=== PATIENT | male | born 1990 | race African-American/Black ===

== ENCOUNTER 2017-01-06 12:01 | Emergency (ER) | payer BC ==
[~2017-01-06] VITALS: Ht 185.4 cm; Wt 74.0 kg
[~2017-01-06 12:01] MED LIST: LEVEMIR SQ; NOVOLOGSS SQ
[2017-01-06 12:03] VITALS: BP 178/98; PULSE 84; RESP 26; TEMP 98.1; O2SAT 100
--- NOTE | 2017-01-06 12:08 | PD ---
Physical Exam Time Seen by Provider: 12:06 Narrative 26-year-old male presents to the emergency Department with complaint of nausea, vomiting, diarrhea since Wednesday. Denies fevers, abdominal pain. Was evaluated at [facility] prior to arrival here and was told he was dehydrated. Is here for second opinion because he is still not feeling well. Patient seen in triage. Vital signs reviewed. Patient awaiting bed placement. Data Data Last Documented VS Vital Signs Date Time Temp Pulse Resp B/P (MAP) Pulse Ox O2 Delivery O2 Flow Rate FiO2 01/06/17 12:03 98.1 84 26 178/98 (124) 100 MDM Supervised Visit with CRISS: Herlinda Ocasio Jan 06, 2017 12:08
[2017-01-06] MEDS ORDERED: NOVOLOGP2 SQ (17:07)
[2017-01-06] MEDS ORDERED: HUMALOG SQ (17:09)
--- NOTE | 2017-01-06 17:13 | PD ---
HPI Chief Complaint: GI Complaint Time Seen by Provider: 17:11 Travel History International Travel<30 days: No Contact w/Intl Traveler<30days: No Traveled to known affect area: No History of Present Illness HPI 26-year-old type I diabetic since age of 13 presents the emergency department with 3 day history of abdominal pain, nausea, vomiting, and diarrhea. Patient denies specific complaints of fever. Pain is more central epigastric region. Pain is currently an 8 out of 10. Patient was recently seen at [facility] , and was reportedly told he was dehydrated, given 1 L IV fluids and discharged home. Parents then brought him here as his symptoms are not improved. He has no known drug allergies. PFSH Past Medical History Anxiety: No Depression: No Cancer: No Cardiovascular Problems: No Diabetes: Yes Patient Takes Glucophage: No Diminished Hearing: No Endocrine: Yes Genitourinary: No Immune Disorder: No Implanted Vascular Access Dvce: No Musculoskeletal: No Neurologic: No Psychiatric: No Reproductive: No Respiratory: No Thyroid Disease: No ?: Not Past Surgical History Surgical History: No Previous Surgery Insulin Pump: No Other Surgery: No Social History Alcohol Use: No Tobacco Use: No Substance Use: No Allergies-Medications (Allergen,Severity, Reaction): Coded Allergies: No Known Allergies (Unverified , 01/06/17) Reported Meds & Prescriptions Reported Meds & Active Scripts Active Reported Humalog Inj (Insulin Human Lispro) 1,000 Unit/10 Ml Vial 1-9 Units SQ ACHS Max dose at bedtime:( )units; sugars< 70,(0)units; sugars 150-199,(1)unit; sugars 200-249,(3)units; sugars 250-299,(5)units; sugars 300-349,(7)units; sugars more than 349,(9)units. Novolog Inj (Insulin Aspart) 1,000 Unit/10 Ml Vial 60 Unit SQ DIRECTED Sliding Scale as directed. Review of Systems Except as stated in HPI: all other systems reviewed are Neg General / Constitutional: No: Fever, Chills Eyes: No: Visual changes HENT: No: Headaches Cardiovascular: No: Chest Pain or Discomfort Respiratory: No: Shortness of Breath Gastrointestinal: Positive: Nausea, Vomiting, Diarrhea, Abdominal Pain (see history present illness), Loss of Appetite Genitourinary: No: Dysuria Musculoskeletal: No: Pain Skin: No Rash Neurologic: No: Weakness Psychiatric: No: Depression Endocrine: No: Polydipsia Hematologic/Lymphatic: No: Easy Bruising Physical Exam Narrative GENERAL: Patient appears in obvious distress. SKIN: Warm and dry. Decreased pallor. Decreased turgor. HEAD: Atraumatic. Normocephalic. EYES: Pupils equal and round. No scleral icterus. No injection or drainage. ENT: No nasal bleeding or discharge. Mucous membranes pink and somewhat dry. Pharynx is clear. Airway is patent. NECK: Trachea midline. Supple nontender. CARDIOVASCULAR: Tachycardic rate and normal rhythm. RESPIRATORY: No accessory muscle use. Clear to auscultation. Breath sounds equal bilaterally. GASTROINTESTINAL: Abdomen soft, moderate epigastric and right upper quadrant tenderness, nondistended. Hepatic and splenic margins not palpable. No CVA tenderness. MUSCULOSKELETAL: Extremities without clubbing, cyanosis, or edema. No obvious deformities. NEUROLOGICAL: Awake and alert. No obvious cranial nerve deficits. Motor grossly within normal limits. Five out of 5 muscle strength in the arms and legs. Normal speech. PSYCHIATRIC: Appropriate mood and affect; insight and judgment normal. Data Data Last Documented VS Vital Signs Date Time Temp Pulse Resp B/P (MAP) Pulse Ox O2 Delivery O2 Flow Rate FiO2 01/06/17 12:03 98.1 84 26 178/98 (124) 100 Orders Orders Complete Blood Count With Diff (01/06/17 17:15) Comprehensive Metabolic Panel (01/06/17 17:15) Lipase (01/06/17 17:15) Lactic Acid (01/06/17 17:15) Prothrombin Time / Inr (Pt) (01/06/17 17:15) Act Partial Throm Time (Ptt) (01/06/17 17:15) Urinalysis - C+S If Indicated (01/06/17 17:15) Iv Access Insert/Monitor (01/06/17 17:15) Ecg Monitoring (01/06/17 17:15) Oximetry (01/06/17 17:15) NPO (01/06/17 17:15) Morphine Inj (Morphine Inj) (01/06/17 17:15) Ondansetron Inj (Zofran Inj) (01/06/17 17:15) Pantoprazole Inj (Protonix Inj) (01/06/17 17:15) Sodium Chlor 0.9% 1000 Ml Inj (Ns 1000 M (01/06/17 17:15) Sodium Chloride 0.9% Flush (Ns Flush) (01/06/17 17:15) Electrocardiogram (01/06/17 17:15) Al-Mag Hy-Si 40-40-4 Mg/Ml Liq (Mag-Al P (01/06/17 17:15) Lidocaine 2% Viscous (Xylocaine 2% Visco (01/06/17 17:15) Ct Abd/Pel W Iv Contrast(Rout) (01/06/17 17:15) Insulin Human Regular Inj (Novolin R Inj (01/06/17 18:45) Bedside Glucose JOSTIN.CSUGAR (01/06/17 18:31) Lactic Acid Sepsis Protocol (01/06/17 18:36) Sodium Chlor 0.9% 1000 Ml Inj (Ns 1000 M (01/06/17 18:36) Sodium Chlor 0.9% 1000 Ml Inj (Ns 1000 M (01/06/17 18:36) Labs Laboratory Tests Test 01/06/17 17:40 White Blood Count 14.4 TH/MM3 Red Blood Count 4.32 MIL/MM3 Hemoglobin 12.8 GM/DL Hematocrit 38.7 % Mean Corpuscular Volume 89.6 FL Mean Corpuscular Hemoglobin 29.7 PG Mean Corpuscular Hemoglobin Concent 33.2 % Red Cell Distribution Width 14.8 % Platelet Count 235 TH/MM3 Mean Platelet Volume 10.1 FL Neutrophils (%) (Auto) 80.3 % Lymphocytes (%) (Auto) 12.3 % Monocytes (%) (Auto) 6.9 % Eosinophils (%) (Auto) 0.0 % Basophils (%) (Auto) 0.5 % Neutrophils # (Auto) 11.6 TH/MM3 Lymphocytes # (Auto) 1.8 TH/MM3 Monocytes # (Auto) 1.0 TH/MM3 Eosinophils # (Auto) 0.0 TH/MM3 Basophils # (Auto) 0.1 TH/MM3 CBC Comment DIFF FINAL Differential Comment Prothrombin Time 10.8 SEC Prothromb Time International Ratio 1.0 RATIO Activated Partial Thromboplast Time 23.3 SEC Blood Urea Nitrogen 35 MG/DL Creatinine 1.99 MG/DL Random Glucose 362 MG/DL Total Protein 8.3 GM/DL Albumin 3.6 GM/DL Calcium Level 8.8 MG/DL Alkaline Phosphatase 120 U/L Aspartate Amino Transf (AST/SGOT) 20 U/L Alanine Aminotransferase (ALT/SGPT) 20 U/L Total Bilirubin 0.9 MG/DL Sodium Level 136 MEQ/L Potassium Level 4.0 MEQ/L Chloride Level 103 MEQ/L Carbon Dioxide Level 18.5 MEQ/L Anion Gap 15 MEQ/L Estimat Glomerular Filtration Rate 50 ML/MIN Lactic Acid Level 2.4 mmol/L Lipase 78 U/L MDM Medical Decision Making Medical Screen Exam Complete: Yes Emergency Medical Condition: Yes Differential Diagnosis Nausea and vomiting. Diarrhea. Abdominal pain. Dehydration. Type 1 diabetes. Ketoacidosis. Electrolyte imbalance. Metabolic acidosis. DKA. Renal failure. Narrative Course Patient appears in moderate distress but seems medically stable. Bedside serum glucose is 346. EKG is ordered. Labs ordered including CBC, CMP, lactic acid, lipase, PT PTT and INR, and urinalysis. IV access is obtained patient is given 4 mg morphine IV as well as 4 mg Zofran IV, he is also given 40 mg pantoprazole IV, and GI cocktail with nausea is improved. CT of the abdomen and pelvis is ordered with IV contrast pending the creatinine. EKG shows normal sinus rhythm without significant ST-T changes. CBC is remarkable for leukocytosis of 14.4. Hemoglobin 12.8, hematocrit 38.7. CMP shows normal sodium 136, potassium 4.0. Chloride is 103, carbon dioxide is 18.5. Anion gap is 15. BUN is 35, and creatinine is 1.99. Random glucose is 362. Alkaline phosphatase is elevated at 120, and total protein is 8.3. Lipase is normal at 78. Lactic acid is 2.4 per 5 units of regular insulin is ordered IV. Repeat blood sugar is ordered for 1930 hrs. 2 more liters of normal saline bolus is ordered. Repeat lactic acid is ordered for 2030 hrs. Patient is discussed with Dr. Wesley, who assumes care of the patient in 1900 hrs. Final treatment and disposition is determined by her. Condition: Stable Jerry Granda Jan 06, 2017 17:13
[2017-01-06] MEDS ORDERED: PANTOPRAZOLE SODIUM 40 MG VIAL IVP ONE (17:15)
[2017-01-06] MEDS ORDERED: SODIUM CHLORIDE 0.9% FLUSH 10 ML FLUSH IV FLUSH PRN (17:15)
[2017-01-06] MEDS ORDERED: ONDANSETRON HCL 4 MG/2 ML VIAL IVP ONE (17:15)
[2017-01-06] MEDS ORDERED: SODIUM CHLOR 0.9% 1000 ML INJ 1,000 ML IV SCH (17:15)
[2017-01-06] MEDS ORDERED: MORPHINE SULFATE 4 MG/ML INJ IV PUSH ONE (17:15)
[2017-01-06] MEDS ORDERED: ALUMINUM/MAGNESIUM/SIMETH 30 ML CUP PO ONE (17:15)
[2017-01-06] MEDS ORDERED: LIDOCAINE VISCOUS 2% SOLN 15 ML UDC PO ONE (17:15)
[2017-01-06 17:53] LABS: AUTOMATED NEUTROPHIL # 11.6 TH/MM3 (1.8-7.7); BASOPHIL # 0.1 TH/MM3 (0-0.2); BASOPHIL % 0.5 % (0.0-2.0); HEMATOCRIT 38.7 % (39.0-51.0); HEMO FLAGS DIFF FINAL; LYMPH % 12.3 % (9.0-44.0); LYMPHOCYTE # 1.8 TH/MM3 (1.0-4.8); MEAN CELL VOLUME 89.6 FL (80.0-100.0); MEAN CORPUSCULAR HEMOGLOBIN 29.7 PG (27.0-34.0); MEAN CORPUSCULAR HGB CONC 33.2 % (32.0-36.0); MONO % 6.9 % (0.0-8.0); NEUT % 80.3 % (16.0-70.0); PLATELET COUNT 235 TH/MM3 (150-450); RED BLOOD COUNT 4.32 MIL/MM3 (4.50-5.90); RED CELL DISTRIBUTION WIDTH 14.8 % (11.6-17.2); WHITE BLOOD COUNT 14.4 TH/MM3 (4.0-11.0)
--- NOTE | 2017-01-06 17:54 | PD ---
Physical Exam Date Seen by Provider: Jan 06, 2017 Narrative This is a diabetic patient who presents with nausea and vomiting. Data Data Last Documented VS Vital Signs Date Time Temp Pulse Resp B/P (MAP) Pulse Ox O2 Delivery O2 Flow Rate FiO2 01/06/17 12:03 98.1 84 26 178/98 (124) 100 Orders Orders Complete Blood Count With Diff (01/06/17:) Comprehensive Metabolic Panel (01/06/17) Lipase (01/06/17:) Lactic Acid (01/06/17) Prothrombin Time / Inr (Pt) (01/06/17:) Act Partial Throm Time (Ptt) (01/06/17) Urinalysis - C+S If Indicated (01/06/17) Iv Access Insert/Monitor (01/06/17:15) Ecg Monitoring (01/06/17:) Oximetry (01/06/17) NPO (01/06/17:) Morphine Inj (Morphine Inj) (01/06/17:15) Ondansetron Inj (Zofran Inj) (01/06/17:15) Pantoprazole Inj (Protonix Inj) (01/06/17:15) Sodium Chlor 0.9% 1000 Ml Inj (Ns 1000 M (01/06/17:15) Sodium Chloride 0.9% Flush (Ns Flush) (01/06/17:15) Electrocardiogram (01/06/17:) Al-Mag Hy-Si 40-40-4 Mg/Ml Liq (Mag-Al P (01/06/17:15) Lidocaine 2% Viscous (Xylocaine 2% Visco (01/06/17:15) Ct Abd/Pel W Iv Contrast(Rout) (01/06/17:15) Labs Laboratory Tests Test 01/06/17:40 MDM Supervised Visit with CRISS: Yes Narrative Course I, Dr. Wesley, have reviewed the advance practice practitioner's documentation and am in agreement, met with the patient face to face, made the diagnosis, and the medical decision making was done by me. *My assessment and Findings: This patient was actively vomiting on arrival. He does not look like he feels very well. He does not smell of ketones and is lucid. Please see Pelon Granda PA-C's note for results of laboratory and radiographic evaluation, ED course, final diagnosis and disposition Condition: Yamilet Quiroz MD Jan 06, 2017 17:54
[2017-01-06 18:02] LABS: APTT (PATIENT) 23.3 SEC (24.3-30.1); PROTHROMBIN TIME - PATIENT 10.8 SEC (9.8-11.6)
[2017-01-06 18:10] LABS: ALT (GPT) 20 U/L (12-78); ANION GAP 15 MEQ/L (5-15); AST (GOT) 20 U/L (15-37); BICARBONATE 18.5 MEQ/L (21.0-32.0); BLOOD UREA NITROGEN 35 MG/DL (7-18); CHLORIDE 103 MEQ/L (98-107); GLOMERULAR FILTRATION RATE 50 ML/MIN (>89); SODIUM (NA) 136 MEQ/L (136-145)
[2017-01-06 18:11] LABS: ALKALINE PHOSPHATASE 120 U/L (45-117); TOTAL BILIRUBIN ADULT 0.9 MG/DL (0.2-1.0)
[2017-01-06] MEDS ORDERED: SODIUM CHLOR 0.9% 1000 ML INJ 100 ML IV ONE (18:36)
[2017-01-06] MEDS ORDERED: SODIUM CHLOR 0.9% 1000 ML INJ 1,000 ML IV ONE (18:36)
[2017-01-06] MEDS ORDERED: INSULIN HUMAN REGULAR 1,000 UNITS/10 ML VIAL SQ ONE (18:45)
[2017-01-06] MEDS ORDERED: IODIXANOL 320 MG/ML 10 ML VIAL (for Rad CT) IVCONTRAST ONE (20:14)
--- NOTE | 2017-01-06 20:22 | RADRPT ---
EXAM DATE/TIME: 01/06/2017 20:01 [facility] COMPARISON: CT ABDOMEN & PELVIS W/O CONTRAST, December 04, 2014, 19:18. INDICATIONS : Vomiting with nausea for three days. IV CONTRAST: 50 cc Visipaque (iodixanol) IV ORAL CONTRAST: No oral contrast ingested. RADIATION DOSE: 5.24 CTDIvol (mGy) MEDICAL HISTORY : Diabetes mellitus type 2. SURGICAL HISTORY : None. ENCOUNTER: Initial ACUITY: 3 days PAIN SCALE: 7/10 LOCATION: Bilateral upper quadrant TECHNIQUE: Volumetric scanning of the abdomen and pelvis was performed. Using automated exposure control and ad justment of the mA and/or kV according to patient size, radiation dose was kept as low as reasonably achievable to obtain optimal diagnostic quality images. DICOM format image data is available electro nically for review and comparison. FINDINGS: LOWER LUNGS: The visualized lower lungs are clear. LIVER: Homogeneous density without lesion. The liver is enlarged measuring 22.3 cm. There is no dilation of the biliary tree. No calcified gallstones. No ascites. SPLEEN: Normal size without lesion. PANCREAS: Within normal limits. KIDNEYS: Normal in size and shape. There is no mass, stone or hydronephrosis. ADRENAL GLANDS: Within normal limits. VASCULAR: There is no aortic aneurysm. BOWEL/MESENTERY: The stomach, small bowel, and colon demonstrate no acute abnormality. There is no free intraperitone al air or fluid. The appendix is unremarkable. No inflammatory changes. ABDOMINAL WALL: Within normal limits. RETROPERITONEUM: There is no lymphadenopathy. BLADDER: No wall thickening or mass. REPRODUCTIVE: Within normal limits. INGUINAL: There is no lymphadenopathy or hernia. MUSCULOSKELETAL: Within normal limits for patient age. No significant changes compared to 2014. CONCLUSION: 1. Diffusely enlarged liver measuring 22.3 cm. 2. Otherwise, unremarkable and stable CT scan of the abdomen and pelvis compared to 2014. Jeremiah Quigley MD on January 06, 2017 at 20:17 Board Certified Radiologist. This report was verified electronically.
[2017-01-06 21:18] VITALS: BP 148/94; PULSE 92; RESP 21; TEMP 98.4; O2SAT 99
[2017-01-06 21:53] LABS: BLOOD, URINE SMALL (NEG); GLUCOSE,URINE 1000 mg/dL (NEG); KETONE, URINE 80 mg/dL (NEG); NITRITE,URINE NEG (NEG); PH, URINE 5.5 (5.0-8.5); URINE COLOR LIGHT-YELLOW (YELLW/STRAW)
[2017-01-06 21:55] LABS: COMMENT (UR) CULT NOT INDICATED; CULTURE IF INDICATED CULT NOT INDICATED
[2017-01-06] MEDS ORDERED: ZOFR4TAB PO (22:22)
[2017-01-06 23:49] LABS: LACTIC ACID GHOST NOT REPORTABLE
--- NOTE | 2017-01-07 12:22 | EKG ---
Date Performed: 01/06/2017 Time Performed: 17:44:48 PTAGE: 26 years EKG: Sinus rhythm NORMAL ECG PREVIOUS TRACING : 06/25/2015 13.13 Compared to prior tracing no significant change DOCTOR: Danette Baxter Interpretating Date/Time 01/07/2017 12:17:50
== END 2017-01-06 23:31 | disposition home or self-care (01) ==
LOC: NEPD 12:01
DX: R11.2 Nausea with vomiting, unspecified (principal); R10.9 Unspecified abdominal pain; E86.0 Dehydration; E10.9 Type 1 diabetes mellitus without complications; Z79.4 Long term (current) use of insulin
CPT/HCPCS: 74177; 80053; 81001; 83605; 83690; 85025; 85610; 85730; 93005; 96361; 96372; 96374; 96375; 99285; C9113; J1815; J2270; J2405; J7030; Q9967

== ENCOUNTER 2017-02-16 01:49 | Emergency (ER) | payer BC ==
[~2017-02-16] VITALS: Ht 185.4 cm; Wt 68.0 kg
[~2017-02-16 01:49] MED LIST changes: +HUMALOG SQ; -LEVEMIR SQ; +NOVOLOGP2 SQ; -NOVOLOGSS SQ; +ZOFR4TAB PO
[2017-02-16 01:52] VITALS: BP 165/100; PULSE 118; RESP 18; TEMP 98.7; O2SAT 99
[2017-02-16] MEDS ORDERED: METOCLOPRAMIDE HCL 10 MG/2 ML VIAL IV PUSH ONE (02:30)
[2017-02-16] MEDS ORDERED: SODIUM CHLOR 0.9% 1000 ML INJ 1,000 ML IV ONE ×2 (02:30→05:00)
--- NOTE | 2017-02-16 02:41 | PD ---
HPI Chief Complaint: GI Complaint Time Seen by Provider: 02:19 Travel History International Travel<30 days: No Contact w/Intl Traveler<30days: No Traveled to known affect area: No History of Present Illness HPI The patient is a 26 year old male who presents to the [facility] emergency department with a history of nausea, vomiting, and diarrhea that began earlier today. He has had n/v x10 and a few episodes of diarrhea. The stool is brown in color without blood. The patient has a history of diabetes mellitus. He denies having any prior history of gastroparesis. His BS prior to arrival was 150. He denies having any known sick contacts, recent antibiotic use, or unusual food intake. On review of systems, the patient denies having any known recent fevers, cough, congestion, neck pain, chest pain, abdominal pain, urinary symptoms, or neurologic symptoms. [facility] Past Medical History Narrative Medical The patient's past medical history is significant for DM dx at 13 years of age. The patient was last seen in the emergency department related to an episode of vomiting one month ago. He denies any history of gastroparesis. He denies ever seeing a cloth opener hand. Anxiety: No Depression: No Cancer: No Cardiovascular Problems: No Diabetes: Yes Patient Takes Glucophage: No Diminished Hearing: No Endocrine: Yes Genitourinary: No Immune Disorder: No Implanted Vascular Access Dvce: No Musculoskeletal: No Neurologic: No Psychiatric: No Reproductive: No Respiratory: No Immunizations Current: Yes Thyroid Disease: No Tetanus Vaccination: < 5 Years Influenza Vaccination: Yes Past Surgical History Narrative Surgical The patient's past surgical history is reportedly none. Insulin Pump: No Other Surgery: No Social History Alcohol Use: No Tobacco Use: No Substance Use: No Allergies-Medications (Allergen,Severity, Reaction): Coded Allergies: No Known Allergies (Unverified Adverse Reaction, Unknown, 02/16/17) Reported Meds & Prescriptions Reported Meds & Active Scripts Active Zofran (Ondansetron HCl) 4 Mg Tab 4 Mg PO Q6HR PRN Reported Humalog Inj (Insulin Human Lispro) 1,000 Unit/10 Ml Vial 1-9 Units SQ ACHS Max dose at bedtime:( )units; sugars< 70,(0)units; sugars 150-199,(1)unit; sugars 200-249,(3)units; sugars 250-299,(5)units; sugars 300-349,(7)units; sugars more than 349,(9)units. Novolog Inj (Insulin Aspart) 1,000 Unit/10 Ml Vial 60 Unit SQ DIRECTED Sliding Scale as directed. Review of Systems Except as stated in HPI: all other systems reviewed are Neg General / Constitutional: No: Fever Eyes: No: Visual changes HENT: No: Headaches Cardiovascular: No: Chest Pain or Discomfort Respiratory: No: Shortness of Breath Gastrointestinal: Positive: Nausea, Vomiting, Diarrhea, Changes in Bowel Habits , No: Abdominal Pain Genitourinary: No: Dysuria Musculoskeletal: No: Pain Skin: No Rash Neurologic: No: Weakness Psychiatric: No: Depression Endocrine: No: Polydipsia Hematologic/Lymphatic: No: Easy Bruising Physical Exam Narrative General: The patient is a well-developed well-nourished male in no acute distress. Head and Neck exam: Head is normocephalic atraumatic. Eyes: EOMI, pupils are equal round and reactive to light. Nose: Midline septum with pink mucous membranes Mouth: Dentition unremarkable. Moist mucus membranes. Posterior oropharynx is not erythematous. No tonsillar hypertrophy. Uvula midline. Airway patent. Neck: No palpable lymphadenopathy. No nuchal rigidity. No thyromegaly. Cardiovascular: Sinus tachycardia in the low 100s without murmurs, gallops, or rubs. No pulse deficit to the extremities on simultaneous auscultation and palpation of his radial artery. Lungs: Clear to auscultation bilaterally. No wheezes, rhonchi, or rales. Abdomen: Soft, without tenderness to palpation in all 4 quadrants of the abdomen. No guarding, rebound, or rigidity. Normal bowel sounds are audible. No tenderness on palpation of McBurney's point. Extremities: No clubbing, cyanosis, or edema. 2+ pulses in all 4 extremities. No calf tenderness on palpation. Back: No spinous process tenderness to palpation. No costovertebral angle tenderness to palpation. Neurologic Exam: Grossly nonfocal. Skin Exam: No rash noted. Intact skin that is warm and dry. Data Data Last Documented VS Vital Signs Date Time Temp Pulse Resp B/P (MAP) Pulse Ox O2 Delivery O2 Flow Rate FiO2 02/16/17 01:52 98.7 118 18 165/100 (121) 99 Orders Orders Complete Blood Count With Diff (11/21/17 02:20) Comprehensive Metabolic Panel (02/16/17 02:20) Lipase (02/16/17 02:20) Urinalysis - C+S If Indicated (02/16/17 02:20) Blood Gas Venous Ph (02/16/17 02:20) Beta Hydroxybutyrate (Acetone) (02/16/17 02:20) Chest, Single Ap (02/16/17 02:20) Iv Access Insert/Monitor (02/16/17 02:20) Ecg Monitoring (02/16/17 02:20) Oximetry (02/16/17 02:20) Blood Glucose (02/16/17 02:20) Sodium Chlor 0.9% 1000 Ml Inj (Ns 1000 M (02/16/17 02:30) Metoclopramide Inj (Reglan Inj) (02/16/17 02:30) Sodium Chlor 0.9% 1000 Ml Inj (Ns 1000 M (02/16/17 05:00) Oral Rehydration (02/16/17 04:52) Ed Discharge Order (02/16/17 05:18) Labs Laboratory Tests Test 02/16/17 02:50 02/16/17 02:55 Venous Blood pH 7.44 White Blood Count 15.8 TH/MM3 Red Blood Count 4.59 MIL/MM3 Hemoglobin 13.8 GM/DL Hematocrit 40.4 % Mean Corpuscular Volume 88.0 FL Mean Corpuscular Hemoglobin 30.0 PG Mean Corpuscular Hemoglobin Concent 34.1 % Red Cell Distribution Width 13.6 % Platelet Count 308 TH/MM3 Mean Platelet Volume 10.0 FL Neutrophils (%) (Auto) 76.0 % Lymphocytes (%) (Auto) 15.1 % Monocytes (%) (Auto) 8.4 % Eosinophils (%) (Auto) 0.0 % Basophils (%) (Auto) 0.5 % Neutrophils # (Auto) 12.0 TH/MM3 Lymphocytes # (Auto) 2.4 TH/MM3 Monocytes # (Auto) 1.3 TH/MM3 Eosinophils # (Auto) 0.0 TH/MM3 Basophils # (Auto) 0.1 TH/MM3 CBC Comment DIFF FINAL Differential Comment Blood Urea Nitrogen 36 MG/DL Creatinine 2.37 MG/DL Random Glucose 103 MG/DL Total Protein 9.2 GM/DL Albumin 4.3 GM/DL Calcium Level 9.4 MG/DL Alkaline Phosphatase 131 U/L Aspartate Amino Transf (AST/SGOT) 19 U/L Alanine Aminotransferase (ALT/SGPT) 21 U/L Total Bilirubin 0.8 MG/DL Sodium Level 139 MEQ/L Potassium Level 3.7 MEQ/L Chloride Level 99 MEQ/L Carbon Dioxide Level 22.3 MEQ/L Anion Gap 18 MEQ/L Estimat Glomerular Filtration Rate 41 ML/MIN Lipase 109 U/L B-Hydroxybutyrate 3.96 MMOL/L MDM Medical Decision Making Medical Screen Exam Complete: Yes Emergency Medical Condition: Yes Medical Record Reviewed: Yes Interpretation(s) Last Impressions Chest X-Ray 02/16/17 0220 Signed Impressions: Service Date/Time: Thursday, February 16, 2017 02:34 - CONCLUSION: No evidence of acute cardiopulmonary disease. Lane Blue MD Differential Diagnosis Dehydration, versus DKA, versus gastroenteritis, versus gastroparesis Narrative Course During the course of the patients emergency department visit, the patients history, examination, and differential diagnosis were reviewed with the patient. The patient was placed on a nurse monitoring with oximetry and frequent blood pressure monitoring. The patient had IV access obtained and blood work sent for analysis. The patient's electronic medical record was reviewed. The patient was last seen in the emergency department in December related to vomiting. The patient at that time did undergo a CT scan of the abdomen and pelvis which showed a diffusely enlarged liver, otherwise no acute abnormality, stable CT compared to 2014. As the patient on examination has no significant abdominal pain, we will avoid doing additional imaging and exposure to radiation through CT scan of the abdomen and pelvis. I am concerned about the possibility of gastroparesis in this patient who has had 2 periods of intractable vomiting in the last 2 months. The patient was initially provided normal saline 1 L IV fluid bolus, Reglan 5 mg IV. The patients laboratory studies were reviewed and remarkable for white count 15.8, hemoglobin 13.8, platelets of 308, neutrophils 76, monocytes 8.4, CMP is remarkable for a BUN of 36, creatinine 2.37 which is similar compared to previously, alkaline phosphatase 131, total protein 9.2, lipase 109, PT 10.8, PTT 23.3, pH 7.44. The patient's blood sugar was 103 on his chemistry. The patient was given a second liter of normal saline IV fluids. The patient has not had any further episodes of vomiting or diarrhea while in the emergency department. The patient was started on sips of liquids. Radiology studies were reviewed and remarkable for a chest x-ray that shows no acute cardiopulmonary abnormality. The patient will be given the name of the cloth opener hand on-call for follow- up if he has a recurrence of vomiting. The patient will be given a prescription for nausea medication. The patient is resting comfortably and feels better, is alert and in no distress. The patients results and examination findings were discussed with the patient. The repeat examination is unremarkable and benign. The history, exam, diagnostic testing, and current condition do not suggest any significant pathology to warrant further testing, continued ED treatment, admission, or surgical evaluation at this point. The vital signs have been stable. The patient does not have uncontrollable pain, intractable vomiting, or other significant symptoms. The patient's condition is stable and appropriate for discharge. The patient will pursue further outpatient evaluation with a primary care physician or other designated or consulting physician as indicated in the discharge instructions. The patient expressed understanding and was agreeable with this plan. Diagnosis Primary Impression: Vomiting Qualified Codes: R11.2 - Nausea with vomiting, unspecified Additional Impression: Diarrhea Qualified Codes: R19.7 - Diarrhea, unspecified Referrals: Trell Narayanan MD 1 week Primary Care Physician 2 days Patient Instructions: Acute Diarrhea (ED), Acute Nausea and Vomiting (ED), General Instructions Med/Other Pt SpecificInfo: Prescription(s) given Scripts Ondansetron (Zofran) 4 Mg Tab 4 MG PO Q6HR Y for NAUSEA OR VOMITING, #10 TAB 0 Refills Prov: Tsering Ryder MD 02/16/17 Disposition: 01 DISCHARGE HOME Condition: Stable Tsering Ryder MD Feb 16, 2017 02:41
--- NOTE | 2017-02-16 02:55 | RADRPT ---
EXAM DATE/TIME: 02/16/2017 02:34 [facility] COMPARISON: CHEST SINGLE AP, June 25, 2015, 12:50. INDICATIONS : Chest pain. Vomiting. MEDICAL HISTORY : Diabetes mellitus type II. SURGICAL HISTORY : None. ENCOUNTER: Initial ACUITY: 1 day PAIN SCORE: 1/10 LOCATION: Bilateral chest FINDINGS: A single view of the chest demonstrates the lungs to be symmetrically aerated without evidence of mas s, infiltrate or effusion. The cardiomediastinal contours are unremarkable. Osseous structures are intact. CONCLUSION: No evidence of acute cardiopulmonary disease. Lane Blue MD on February 16, 2017 at 2:54 Board Certified Radiologist. This report was verified electronically.
[2017-02-16 03:22] LABS: BASOPHIL # 0.1 TH/MM3 (0-0.2); BASOPHIL % 0.5 % (0.0-2.0); HEMATOCRIT 40.4 % (39.0-51.0); HEMO FLAGS DIFF FINAL; LYMPH % 15.1 % (9.0-44.0); LYMPHOCYTE # 2.4 TH/MM3 (1.0-4.8); MEAN CORPUSCULAR HGB CONC 34.1 % (32.0-36.0); MONO % 8.4 % (0.0-8.0); PLATELET COUNT 308 TH/MM3 (150-450); RED BLOOD COUNT 4.59 MIL/MM3 (4.50-5.90); RED CELL DISTRIBUTION WIDTH 13.6 % (11.6-17.2); WHITE BLOOD COUNT 15.8 TH/MM3 (4.0-11.0)
[2017-02-16 03:37] LABS: ALT (GPT) 21 U/L (12-78); ANION GAP 18 MEQ/L (5-15); AST (GOT) 19 U/L (15-37); BICARBONATE 22.3 MEQ/L (21.0-32.0); BLOOD UREA NITROGEN 36 MG/DL (7-18); CHLORIDE 99 MEQ/L (98-107); GLOMERULAR FILTRATION RATE 41 ML/MIN (>89); POTASSIUM 3.7 MEQ/L (3.5-5.1); SODIUM (NA) 139 MEQ/L (136-145)
[2017-02-16 03:40] LABS: ALKALINE PHOSPHATASE 131 U/L (45-117); BETA-HYDROXYBUTYRATE 3.96 MMOL/L (0.00-0.39); TOTAL BILIRUBIN ADULT 0.8 MG/DL (0.2-1.0)
[2017-02-16] MEDS ORDERED: ZOFR4TAB PO (05:08)
[2017-02-16 05:45] VITALS: BP 162/88; PULSE 90; RESP 16; O2SAT 97
== END 2017-02-16 05:50 | disposition home or self-care (01) ==
LOC: NEPC 01:49
DX: R11.2 Nausea with vomiting, unspecified (principal); R19.7 Diarrhea, unspecified; E11.9 Type 2 diabetes mellitus without complications; Z79.4 Long term (current) use of insulin; Z79.899 Other long term (current) drug therapy
CPT/HCPCS: 71010; 80053; 82010; 82800; 83690; 85025; 96361; 96374; 99284; J2765; J7030

== ENCOUNTER 2017-05-10 12:17 | Inpatient (IN) | payer BC ==
[2017-05-10 12:18] VITALS: BP 125/87; PULSE 129; RESP 18; TEMP 98.1; O2SAT 100
[2017-05-10] MEDS ORDERED: ONDANSETRON HCL 4 MG/2 ML VIAL ONE (12:47)
[2017-05-10] MEDS: SODIUM CHLOR 0.9% 1000 ML INJ 1,000 ML IV SCH ×8 (12:50→22:31)
[2017-05-10] MEDS ORDERED: DEXTROSE 50% IN WATER 50 ML SYRINGE ONE (12:54)
[2017-05-10] MEDS ORDERED: DEXTROSE 50% IN WATER 50 ML VIAL(D50) IV PUSH ONE (13:00)
[2017-05-10] MEDS ORDERED: ONDANSETRON HCL 4 MG/2 ML VIAL IV PUSH ONE (13:00)
--- NOTE | 2017-05-10 13:14 | PD ---
HPI Chief Complaint: Diabetic Time Seen by Provider: 12:49 Travel History International Travel<30 days: No Contact w/Intl Traveler<30days: No Traveled to known affect area: No History of Present Illness HPI 26-year-old Type I Diabetic male presents emergency department with his brother with altered mental status and lethargy that started 9 PM last night. Mother states that patient was "not feeling good" and actually did not eat yesterday. Mother does not believe that he has had a fever or chills. Does not know why he has not been feeling good- no URI-type symptoms, fever, nausea, vomiting. The patient is a limited historian but is able to tell me that he did take his insulin this morning after he found his blood sugars around 600. States that he took his insulin (lantus 60U and novolog 30U) early this morning and again did not eat. PFSH Past Medical History Anxiety: No Depression: No Cancer: No Cardiovascular Problems: No Diabetes: Yes Patient Takes Glucophage: No Diminished Hearing: No Endocrine: Yes Genitourinary: No Immune Disorder: No Implanted Vascular Access Dvce: No Musculoskeletal: No Neurologic: No Psychiatric: No Reproductive: No Respiratory: No Immunizations Current: Yes Thyroid Disease: No Past Surgical History Insulin Pump: No Other Surgery: No Social History Alcohol Use: No Tobacco Use: No Substance Use: No Allergies-Medications (Allergen,Severity, Reaction): Coded Allergies: No Known Allergies (Unverified Adverse Reaction, Unknown, 05/10/17) Reported Meds & Prescriptions Reported Meds & Active Scripts Active Zofran (Ondansetron HCl) 4 Mg Tab 4 Mg PO Q6HR PRN Reported Lantus Inj (Insulin Glargine) 1,000 Unit/10 Ml Vial 60 Units SQ DAILY Novolog Inj (Insulin Aspart) 1,000 Unit/10 Ml Vial 60 Unit SQ DIRECTED Sliding Scale as directed. Review of Systems Except as stated in HPI: all other systems reviewed are Neg Physical Exam Narrative GENERAL: Well-developed well-nourished, lethargic SKIN: Focused skin assessment warm/dry, cool HEAD: Atraumatic. Normocephalic. EYES: Pupils equal and round. No scleral icterus. No injection or drainage. ENT: No nasal bleeding or discharge. Mucous membranes pink and dry NECK: Trachea midline. No JVD. no lymphadenopathy CARDIOVASCULAR: Regular rate and rhythm. No murmur appreciated. RESPIRATORY: No accessory muscle use. Clear to auscultation. Breath sounds equal bilaterally. GASTROINTESTINAL: Abdomen soft, non-tender, nondistended. Hepatic and splenic margins not palpable. MUSCULOSKELETAL: No obvious deformities. No clubbing. No cyanosis. No edema. NEUROLOGICAL: Awake and alert. No obvious cranial nerve deficits. Motor grossly within normal limits. Normal speech. PSYCHIATRIC: Appropriate mood and affect; insight and judgment normal. Data Data Last Documented VS Vital Signs Date Time Temp Pulse Resp B/P (MAP) Pulse Ox O2 Delivery O2 Flow Rate FiO2 05/10/17 15:07 112 18 176/97 (123) 100 Room Air 05/10/17 12:18 98.1 Orders Orders Ondansetron Inj (Zofran Inj) (05/10/17 12:47) Ondansetron Inj (Zofran Inj) (05/10/17 13:00) Dextrose 50% In Waylon (Syr) Inj (D50w (Syr (05/10/17 12:54) Electrocardiogram (05/10/17 12:50) ^ Insert Iv (05/10/17 12:50) Bedside Glucose JOSTIN.Q1H (05/10/17 12:50) Complete Blood Count With Diff (05/10/17 12:50) Comprehensive Metabolic Panel (05/10/17 12:50) Magnesium (Mg) (05/10/17 12:50) Phosphorus (Po4) (05/10/17 12:50) Beta Hydroxybutyrate (Acetone) (05/10/17 12:50) Sodium Chlor 0.9% 1000 Ml Inj (Ns 1000 M (05/10/17 12:50) Dextrose 50% In Waylon (Vial) Inj (D50w (Vi (05/10/17 13:00) Blood Gas Venous (Vbg) (05/10/17 12:50) Chest, Single Ap (05/10/17 ) Sodium Chlor 0.9% 1000 Ml Inj (Ns 1000 M (05/10/17 14:31) Dext 5%-Nacl 0.9% 1000 Ml Inj (D5w-Ns 10 (05/10/17 14:31) Insulin Human Regular Inj (Novolin R Inj (05/10/17 14:45) Insulin Regular (Iv Infusion) (Novolin R (05/10/17 14:45) Potassium Chlor 20 Meq Premix (Kcl 20 Me (05/10/17 14:45) Potassium Chlor 20 Meq Premix (Kcl 20 Me (05/10/17 14:45) Potassium Chlor 20 Meq Premix (Kcl 20 Me (05/10/17 14:45) Potassium Chlor 20 Meq Premix (Kcl 20 Me (05/10/17 14:45) Sodium Bicarbonate 8.4% Inj (Sodium Bica (05/10/17 14:45) Sodium Bicarbonate 8.4% Inj (Sodium Bica (05/10/17 14:45) Sodium Phosphate Inj (Sodium Phosphate I (05/10/17 14:45) Basic Metabolic Panel (Bmp) (05/10/17 19:31) Basic Metabolic Panel (Bmp) (05/11/17 01:31) Basic Metabolic Panel (Bmp) (05/11/17 07:31) Basic Metabolic Panel (Bmp) (05/11/17 13:31) Magnesium (Mg) (05/10/17 19:31) Magnesium (Mg) (05/11/17 01:31) Magnesium (Mg) (05/11/17 07:31) Magnesium (Mg) (05/11/17 13:31) Phosphorus (Po4) (05/10/17 19:31) Phosphorus (Po4) (05/11/17 01:31) Phosphorus (Po4) (05/11/17 07:31) Phosphorus (Po4) (05/11/17 13:31) Beta Hydroxybutyrate (Acetone) (05/11/17 01:31) Beta Hydroxybutyrate (Acetone) (05/11/17 13:31) Metoclopramide Inj (Reglan Inj) (05/10/17 15:15) Admit Order (Ed Use Only) (05/10/17 15:43) Labs Laboratory Tests Test 05/10/17 13:09 05/10/17 14:45 White Blood Count 21.2 TH/MM3 Red Blood Count 4.58 MIL/MM3 Hemoglobin 14.1 GM/DL Hematocrit 41.0 % Mean Corpuscular Volume 89.7 FL Mean Corpuscular Hemoglobin 30.8 PG Mean Corpuscular Hemoglobin Concent 34.3 % Red Cell Distribution Width 13.3 % Platelet Count 353 TH/MM3 Mean Platelet Volume 9.8 FL Neutrophils (%) (Auto) 76.1 % Lymphocytes (%) (Auto) 14.5 % Monocytes (%) (Auto) 8.8 % Eosinophils (%) (Auto) 0.0 % Basophils (%) (Auto) 0.6 % Neutrophils # (Auto) 16.2 TH/MM3 Lymphocytes # (Auto) 3.1 TH/MM3 Monocytes # (Auto) 1.9 TH/MM3 Eosinophils # (Auto) 0.0 TH/MM3 Basophils # (Auto) 0.1 TH/MM3 CBC Comment DIFF FINAL Differential Comment Blood Urea Nitrogen 54 MG/DL Creatinine 2.98 MG/DL Random Glucose 258 MG/DL Total Protein 10.2 GM/DL Albumin 4.6 GM/DL Calcium Level 10.3 MG/DL Phosphorus Level 3.9 MG/DL Magnesium Level 3.0 MG/DL Alkaline Phosphatase 145 U/L Aspartate Amino Transf (AST/SGOT) 39 U/L Alanine Aminotransferase (ALT/SGPT) 23 U/L Total Bilirubin 0.9 MG/DL Sodium Level 135 MEQ/L Potassium Level 4.8 MEQ/L Chloride Level 97 MEQ/L Carbon Dioxide Level 14.2 MEQ/L Anion Gap 24 MEQ/L Estimat Glomerular Filtration Rate 31 ML/MIN B-Hydroxybutyrate 6.97 MMOL/L Blood Gas Puncture Site LINE Blood Gas Patient Temperature 98.6 Venous Blood pH 7.34 Venous Blood Partial Pressure CO2 28 mmHg Venous Blood Partial Pressure O2 70 mmHg Venous Blood HCO3 15 mmol/L Venous Blood Oxygen Saturation 91 % Venous Blood Oxygen Content 15.4 Vol % Venous Blood Base Excess -9.7 mmol/L Blood Gas Inspired Oxygen 21 % [facility] Medical Decision Making Medical Screen Exam Complete: Yes Emergency Medical Condition: Yes Differential Diagnosis DKA, hypoglycemia, hyperglycemia, medication noncompliance Narrative Course 26-year-old Type I Diabetic male presents emergency department with his brother with altered mental status and lethargy that started 9 PM last night. Mother states that patient was "not feeling good" and actually did not eat yesterday. Mother does not believe that he has had a fever or chills. Note that the mother is in [place] and this history comes from his brother. Throughout the does not know why he has not been feeling good. The patient is a limited historian but is able to tell me that he did take his insulin this morning after he found his blood sugars around 600. States that he took his insulin ( lantus 60U and novolog 30U) early this morning and again did not eat. Vital signs-tachycardic at 129, afebrile, blood pressure 125/87. Physical exam findings consistent with a well-developed, lethargic 26-year-old male. Patient is able to answer questions appropriately although slow and with limited information. Mother states pt is rather non compliant with medications and has a history of DKA. POC BGL 60s. After 12.5 ML D50 bolus, 2 L IV fluid bolus, Zofran, patient became more alert and oriented and nauseous. Reglan administered as he was persistently nauseous. Labs revealed leukocytosis at 21.2, pH 7.34, bicarb 15, potassium 4.8, calcium 10.3, beta hydroxybutyrate 6.97 DKA protocol fully initiated. He did improve throughout the course of his stay in the ED today with treatment. Patient will be admitted for DKA to ICU with Dr. Welch. Diagnosis Primary Impression: DKA (diabetic ketoacidosis) Qualified Codes: E10.10 - Type 1 diabetes mellitus with ketoacidosis without coma Admitting Information Admitting Physician Requests: Admit Condition: Stable Irlanda Guillen May 10, 2017 13:14
[2017-05-10 13:30] LABS: AUTOMATED NEUTROPHIL # 16.2 TH/MM3 (1.8-7.7); BASOPHIL # 0.1 TH/MM3 (0-0.2); BASOPHIL % 0.6 % (0.0-2.0); HEMOGLOBIN 14.1 GM/DL (13.0-17.0); LYMPH % 14.5 % (9.0-44.0); LYMPHOCYTE # 3.1 TH/MM3 (1.0-4.8); MEAN CELL VOLUME 89.7 FL (80.0-100.0); MEAN CORPUSCULAR HEMOGLOBIN 30.8 PG (27.0-34.0); MEAN CORPUSCULAR HGB CONC 34.3 % (32.0-36.0); MEAN PLATELET VOLUME 9.8 FL (7.0-11.0); MONO % 8.8 % (0.0-8.0); MONOCYTE # 1.9 TH/MM3 (0-0.9); NEUT % 76.1 % (16.0-70.0); PLATELET COUNT 353 TH/MM3 (150-450); RED BLOOD COUNT 4.58 MIL/MM3 (4.50-5.90); RED CELL DISTRIBUTION WIDTH 13.3 % (11.6-17.2); WHITE BLOOD COUNT 21.2 TH/MM3 (4.0-11.0)
--- NOTE | 2017-05-10 13:54 | RADRPT ---
EXAM DATE/TIME: 05/10/2017 13:22 [facility] COMPARISON: CHEST SINGLE AP, February 16, 2017, 2:34. INDICATIONS : Syncope. MEDICAL HISTORY : Diabetes mellitus type II. SURGICAL HISTORY : None. ENCOUNTER: Initial ACUITY: 1 day PAIN SCORE: 0/10 LOCATION: Bilateral chest FINDINGS: A single view of the chest demonstrates the lungs to be symmetrically aerated without evidence of mas s, infiltrate or effusion. The cardiomediastinal contours are unremarkable. Osseous structures are intact. CONCLUSION: 1. No acute cardiopulmonary findings. Tom Cabrera MD on May 10, 2017 at 13:50 Board Certified Radiologist. This report was verified electronically.
[2017-05-10 14:00] LABS: ALKALINE PHOSPHATASE 145 U/L (45-117); TOTAL BILIRUBIN ADULT 0.9 MG/DL (0.2-1.0); TOTAL PROTEIN 10.2 GM/DL (6.4-8.2)
[2017-05-10 14:03] LABS: ALBUMIN 4.6 GM/DL (3.4-5.0); ALT (GPT) 23 U/L (12-78); AST (GOT) 39 U/L (15-37); BICARBONATE 14.2 MEQ/L (21.0-32.0); BLOOD UREA NITROGEN 54 MG/DL (7-18); CALCIUM 10.3 MG/DL (8.5-10.1); CHLORIDE 97 MEQ/L (98-107); CREATININE 2.98 MG/DL (0.60-1.30); GLOMERULAR FILTRATION RATE 31 ML/MIN (>89); GLUCOSE,RANDOM 258 MG/DL (74-106); PHOSPHORUS 3.9 MG/DL (2.5-4.9); SODIUM (NA) 135 MEQ/L (136-145)
[2017-05-10] MEDS ORDERED: POTASSIUM CHLOR 20 MEQ PREMIX 100 ML IV PRN ×10 (14:45→16:00)
[2017-05-10] MEDS ORDERED: INSULIN HUMAN REGULAR 1,000 UNITS/10 ML VIAL IV PUSH ONE ×2 (14:45→16:00)
[2017-05-10] MEDS ORDERED: INSULIN REGULAR (IV INFUSION) 100 UNITS in SODIUM CHLORIDE 0.9% INJ 99 ML IV PRN ×2 (14:45→16:00)
[2017-05-10] MEDS ORDERED: SODIUM BICARBONATE 8.4% SOLN 50 MEQ/50 ML VIAL IV PUSH PRN ×4 (14:45→16:00)
[2017-05-10] MEDS ORDERED: SODIUM PHOSPHATE INJ 15 MMOL in SODIUM CHLORIDE 0.9% INJ 100 ML IV PRN ×2 (14:45→16:00)
[2017-05-10 15:07] VITALS: BP 176/97; PULSE 112; RESP 18; O2SAT 100
[2017-05-10] MEDS ORDERED: LANTUS2P SQ (15:10)
[2017-05-10] MEDS ORDERED: METOCLOPRAMIDE HCL 10 MG/2 ML VIAL IV PUSH ONE (15:15)
[2017-05-10] MEDS: DEXT 5%-NACL 0.9% 1000 ML INJ 1,000 ML IV SCH ×4 (15:46→21:30)
[2017-05-10] MEDS ORDERED: MISCELLANEOUS NURSING INFORMATION XX SCH (16:00)
[2017-05-10] MEDS ORDERED: POTASSIUM CHLOR 40 MEQ PREMIX 100 ML IV PRN ×2 (16:00)
[2017-05-10] MEDS ORDERED: CHLORHEXIDINE GLUCONATE 2 % 1 PACK (2 CLOTHS) TOP PRN (16:00)
[2017-05-10 17:03] VITALS: BP 155/69; PULSE 110; RESP 18; O2SAT 100
--- NOTE | 2017-05-10 18:37 | HHI.HP ---
[facility] Service [facility] Hospitalists Primary Care Physician Non-Staff Admission Diagnosis DKA Diagnoses: Chief Complaint: Not feeling well and altered mental status and lethargy Travel History International Travel<30 Days: No Contact w/Intl Traveler <30 Da: No Traveled to Known Affected Are: No History of Present Illness Patient is a 26-year-old type I diabetic male who presents to the emergency department with his family with altered mental status and lethargy. It started at 9 PM last night. Patient mother states that was "not feeling good" He did not eat yesterday. Mother does not believe that he has had a fever chills. Patient not able to tell much. Blood sugars were around 600s morning he took his insulin Lantus 60 units and NovoLog 30 units early this morning and again did not eat Patient therefore presented to the emergency department and was found to be in diabetic ketoacidosis Review of Systems Constitutional: COMPLAINS OF: Fatigue, Chills, Change in appetite, DENIES: Diaphoretic episodes, Fever, Weight gain, Weight loss, Dizziness, Night Sweats Endocrine: DENIES: Heat/cold intolerance, Polydipsia, Polyuria, Polyphagia Eyes: DENIES: Blurred vision, Diplopia, Eye inflammation, Eye pain, Vision loss , Photosensitivity Ears, nose, mouth, throat: DENIES: Tinnitus, Hearing loss, Vertigo, Nasal discharge, Oral lesions, Throat pain, Hoarseness, Ear Pain Respiratory: DENIES: Apneas, Cough, Snoring, Wheezing, Hemoptysis, Sputum production, Shortness of breath Cardiovascular: DENIES: Chest pain, Palpitations, Syncope, Dyspnea on Exertion , PND, Lower Extremity Edema, Orthopnea Gastrointestinal: COMPLAINS OF: Nausea, DENIES: Abdominal pain, Black stools, Bloody stools, Constipation, Diarrhea, Vomiting Genitourinary: DENIES: Sexual dysfunction, Urinary frequency, Urinary incontinence Musculoskeletal: COMPLAINS OF: Muscle aches, DENIES: Joint pain, Stiffness, Joint Swelling, Back pain, Neck pain Integumentary: DENIES: Abnormal pigmentation, Nail changes, Pruritus, Rash Hematologic/lymphatic: DENIES: Bruising, Lymphadenopathy Immunologic/allergic: DENIES: Eczema, Urticaria Neurologic: COMPLAINS OF: Abnormal gait, Poor Balance, DENIES: Headache, Localized weakness, Paresthesias, Seizures, Speech Problems, Tremor Psychiatric: DENIES: Anxiety, Confusion, Mood changes, Depression, Hallucinations, Agitation, Suicidal Ideation, Homicidal Ideation, Delusions Except as stated in HPI: all other systems reviewed are Neg Past Family Social History Past Medical History Diabetes mellitus type 1 History of diabetic ketoacidosis Past Surgical History Denies Reported Medications Reported Meds & Active Scripts Active Zofran (Ondansetron HCl) 4 Mg Tab 4 Mg PO Q6HR PRN Reported Lantus Inj (Insulin Glargine) 1,000 Unit/10 Ml Vial 60 Units SQ DAILY Novolog Inj (Insulin Aspart) 1,000 Unit/10 Ml Vial 60 Unit SQ DIRECTED Sliding Scale as directed. Allergies: Coded Allergies: No Known Allergies (Unverified Adverse Reaction, Unknown, 05/10/17) Active Ordered Medications Current Medications Ondansetron HCl (Zofran Inj) 4 mg STK-MED ONCE .ROUTE ; Start 05/10/17 at 12:47 ; Stop 05/10/17 at 12:48; Status DC Ondansetron HCl (Zofran Inj) 4 mg ONCE ONCE IV PUSH Last administered on at 12:55; Start 05/10/17 at 13:00; Stop 05/10/17 at 13:01; Status DC Dextrose (D50w (Syr) Inj) 50 ml STK-MED ONCE .ROUTE ; Start 05/10/17 at 12:54; Stop 05/10/17 at 12:55; Status DC Sodium Chloride 1,000 ml @ 250 mls/hr Q4H IV Last administered on 05/10/17at 12 :50; Start 05/10/17 at 12:50 Dextrose (D50w (Vial) Inj) 25 ml ONCE ONCE IV PUSH Last administered on at 13:08; Start 05/10/17 at 13:00; Stop 05/10/17 at 13:01; Status DC Sodium Chloride 1,000 ml @ 250 mls/hr Q4H IV Last administered on 05/10/17at 16 :02; Start 05/10/17 at 14:31 Dextrose/Sodium Chloride 1,000 ml @ 200 mls/hr Q5H IV Last administered on 03/15at 16:47; Start 05/10/17 at 14:31 Insulin Human Regular (NovoLIN R INJ) 6.8 units BOLUS ONCE IV PUSH Last administered on 05/10/17at 15:24; Start 05/10/17 at 14:45; Stop 05/10/17 at 14:46 ; Status DC Insulin Human Regular 100 units/ Sodium Chloride 100 ml @ 6.81 mls/hr TITRATE PRN IV Blood Sugar Management Last administered on 05/10/17at 15:26; Start at 14:45 Potassium Chloride 100 ml @ 50 mls/hr Q2H PRN IV SEE LABEL COMMENTS; Start 03/15 at 14:45 Potassium Chloride 100 ml @ 50 mls/hr Q2H PRN IV SEE LABEL COMMENTS; Start 03/15 at 14:45 Potassium Chloride 100 ml @ 50 mls/hr Q2H PRN IV SEE LABEL COMMENTS; Start 03/15 at 14:45 Potassium Chloride 100 ml @ 50 mls/hr Q2H PRN IV SEE LABEL COMMENTS Last administered on 05/10/17at 17:20; Start 05/10/17 at 14:45 Sodium Bicarbonate (Sodium Bicarbonate 8.4% Inj) 100 meq UNSCH PRN IV PUSH SEE LABEL COMMENTS; Start 05/10/17 at 14:45 Sodium Bicarbonate (Sodium Bicarbonate 8.4% Inj) 50 meq UNSCH PRN IV PUSH SEE LABEL COMMENTS; Start 05/10/17 at 14:45 Sodium Phosphate 15 mmol/Sodium Chloride 105 ml @ 25 mls/hr UNSCH PRN IV SEE LABEL COMMENTS; Start 05/10/17 at 14:45 Metoclopramide HCl (Reglan Inj) 10 mg ONCE ONCE IV PUSH Last administered on at 15:06; Start 05/10/17 at 15:15; Stop 05/10/17 at 15:16; Status DC Sodium Chloride 1,000 ml @ 250 mls/hr Q4H IV ; Start 05/10/17 at 15:46 Dextrose/Sodium Chloride 1,000 ml @ 200 mls/hr Q5H IV ; Start 05/10/17 at 15:46 Insulin Human Regular (NovoLIN R INJ) 0.1 units/ Kg actual body weight BOLUS ONCE IV PUSH ; Start 05/10/17 at 16:00; Stop 05/10/17 at 16:02; Status DC Insulin Human Regular 100 units/ Sodium Chloride 100 ml @ 6.81 mls/hr TITRATE PRN IV Blood Glucose Control; Start 05/10/17 at 16:00 Potassium Chloride 100 ml @ 100 mls/hr Q1H PRN IV SEE LABEL COMMENTS; Start at 16:00 Potassium Chloride 100 ml @ 50 mls/hr Q2H PRN IV SEE LABEL COMMENTS; Start 03/15 at 16:00 Potassium Chloride 100 ml @ 100 mls/hr Q1H PRN IV SEE LABEL COMMENTS; Start at 16:00 Potassium Chloride 100 ml @ 100 mls/hr Q1H PRN IV SEE LABEL COMMENTS; Start at 16:00 Potassium Chloride 100 ml @ 50 mls/hr Q2H PRN IV SEE LABEL COMMENTS; Start 03/15 at 16:00 Potassium Chloride 100 ml @ 50 mls/hr Q2H PRN IV SEE LABEL COMMENTS; Start 03/15 at 16:00 Potassium Chloride 100 ml @ 50 mls/hr Q2H PRN IV SEE LABEL COMMENTS; Start 03/15 at 16:00 Potassium Chloride 100 ml @ 50 mls/hr Q2H PRN IV SEE LABEL COMMENTS; Start 03/15 at 16:00 Sodium Bicarbonate (Sodium Bicarbonate 8.4% Inj) 100 meq UNSCH PRN IV PUSH SEE LABEL COMMENTS; Start 05/10/17 at 16:00 Sodium Bicarbonate (Sodium Bicarbonate 8.4% Inj) 50 meq UNSCH PRN IV PUSH SEE LABEL COMMENTS; Start 05/10/17 at 16:00 Sodium Phosphate 15 mmol/Sodium Chloride 105 ml @ 25 mls/hr UNSCH PRN IV SEE LABEL COMMENTS; Start 05/10/17 at 16:00 Miscellaneous Information 1 [id number] ; Start 05/10/17 at 16:00 Chlorhexidine Gluconate (Chlorhexidine 2% Cloth) 3 pack Taper DAILY@04 TOP ; Start 05/11/17 at 04:00; Stop 05/07/18 at 03:59 Chlorhexidine Gluconate (Chlorhexidine 2% Cloth) 3 pack UNSCH PRN TOP HYGIENIC CARE; Start 05/10/17 at 16:00 Family History Denies any current medical issues but patient is lethargic Social History Denies any tobacco alcohol or illicits Physical Exam Vital Signs Vital Signs Date Time Temp Pulse Resp B/P (MAP) Pulse Ox O2 Delivery O2 Flow Rate FiO2 05/10/17 17:03 110 18 155/69 (97) 100 Room Air 05/10/17 15:07 112 18 176/97 (123) 100 Room Air 05/10/17 12:51 106 18 100 Room Air 05/10/17 12:18 98.1 129 18 125/87 (100) 100 Physical Exam GENERAL: This is a well-nourished, well-developed patient, who appears sick and does not appear comfortable who is quite lethargic at the time of my exam SKIN: No rashes, ecchymoses or lesions. Cool and dry. HEAD: Atraumatic. Normocephalic. No temporal or scalp tenderness. EYES: Pupils equal round and reactive. Extraocular motions intact. No scleral icterus. No injection or drainage. ENT: Nose without bleeding, purulent drainage or septal hematoma. Throat without erythema, tonsillar hypertrophy or exudate. Uvula midline. Airway patent. NECK: Trachea midline. No JVD or lymphadenopathy. Supple, nontender, no meningeal signs. CARDIOVASCULAR: Regular rate and rhythm without murmurs, gallops, or rubs. Tachycardic rate and rhythm with some S1-S2 no S3 or S4 RESPIRATORY: Clear to auscultation. Breath sounds equal bilaterally. No wheezes , rales, or rhonchi. GASTROINTESTINAL: Abdomen soft, non-tender, nondistended. No hepato-splenomegaly , or palpable masses. No guarding. MUSCULOSKELETAL: Extremities without clubbing, cyanosis, or edema. No joint tenderness, effusion, or edema noted. No calf tenderness. Negative Homans sign bilaterally. NEUROLOGICAL: Awake and alert. Cranial nerves II through XII intact. Motor and sensory grossly within normal limits. 4 out of 5 muscle strength in all muscle groups. Normal speech. Lethargic Insight and judgment is limited right now Mood and behavior somewhat inappropriate Laboratory Laboratory Tests Test 05/10/17 13:09 05/10/17 14:45 White Blood Count 21.2 Red Blood Count 4.58 Hemoglobin 14.1 Hematocrit 41.0 Mean Corpuscular Volume 89.7 Mean Corpuscular Hemoglobin 30.8 Mean Corpuscular Hemoglobin Concent 34.3 Red Cell Distribution Width 13.3 Platelet Count 353 Mean Platelet Volume 9.8 Neutrophils (%) (Auto) 76.1 Lymphocytes (%) (Auto) 14.5 Monocytes (%) (Auto) 8.8 Eosinophils (%) (Auto) 0.0 Basophils (%) (Auto) 0.6 Neutrophils # (Auto) 16.2 Lymphocytes # (Auto) 3.1 Monocytes # (Auto) 1.9 Eosinophils # (Auto) 0.0 Basophils # (Auto) 0.1 CBC Comment DIFF FINAL Differential Comment Blood Urea Nitrogen 54 Creatinine 2.98 Random Glucose 258 Total Protein 10.2 Albumin 4.6 Calcium Level 10.3 Phosphorus Level 3.9 Magnesium Level 3.0 Alkaline Phosphatase 145 Aspartate Amino Transf (AST/SGOT) 39 Alanine Aminotransferase (ALT/SGPT) 23 Total Bilirubin 0.9 Sodium Level 135 Potassium Level 4.8 Chloride Level 97 Carbon Dioxide Level 14.2 Anion Gap 24 Estimat Glomerular Filtration Rate 31 B-Hydroxybutyrate 6.97 Blood Gas Puncture Site LINE Blood Gas Patient Temperature 98.6 Venous Blood pH 7.34 Venous Blood Partial Pressure CO2 28 Venous Blood Partial Pressure O2 70 Venous Blood HCO3 15 Venous Blood Oxygen Saturation 91 Venous Blood Oxygen Content 15.4 Venous Blood Base Excess -9.7 Blood Gas Inspired Oxygen 21 Result Diagram: 05/10/17 1309 05/10/17 1309 Imaging Last Impressions Chest X-Ray 05/10/17 0000 Signed Impressions: Service Date/Time: Wednesday, May 10, 2017 13:22 - CONCLUSION: 1. No acute cardiopulmonary findings. MD Marshall Rico VTE Risk Assessment Caprini VTE Risk Assessment: Mod/High Risk (score >= 2) Caprini Risk Assessment Model Point Value = 1 Point Value = 2 Point Value = 3 Point Value = 5 Age 41-60 Minor surgery BMI > 25 kg/m2 Swollen legs Varicose veins or History of unexplained or recurrent spontaneous Oral contraceptives or hormone replacement Sepsis (< 1 month) Serious lung disease, including pneumonia (< 1 month) Abnormal pulmonary function Acute myocardial infarction Congestive heart failure (< 1 month) History of inflammatory bowel disease Medical patient at bed rest Age 61-74 Arthroscopic surgery Major open surgery (> 45 min) Laparoscopic surgery (> 45 min) Malignancy Confined to bed (> 72 hours) Immobilizing plaster cast Central venous access Age >= 75 History of VTE Family history of VTE Factor V Leiden Prothrombin [id number] Lupus anticoagulant Anticardiolipin antibodies Elevated serum homocysteine Heparin-induced thrombocytopenia Other congenital or acquired thrombophilia Stroke (< 1 month) Elective arthroplasty Hip, pelvis, or leg fracture Acute spinal cord injury (< 1 month) Prophylaxis Regimen Total Risk Factor Score Risk Level Prophylaxis Regimen 0-1 Low Early ambulation 2 Moderate Order ONE of the following: *Sequential Compression Device (SCD) *Heparin 5000 units SQ BID 3-4 Higher Order ONE of the following medications: *Heparin 5000 units SQ TID *Enoxaparin/Lovenox 40 mg SQ daily (WT < 150 kg, CrCl > 30 mL/min) *Enoxaparin/Lovenox 30 mg SQ daily (WT < 150 kg, CrCl > 10-29 mL/min) *Enoxaparin/Lovenox 30 mg SQ BID (WT < 150 kg, CrCl > 30 mL/min) AND/OR *Sequential Compression Device (SCD) 5 or more Highest Order ONE of the following medications: *Heparin 5000 units SQ TID (Preferred with Epidurals) *Enoxaparin/Lovenox 40 mg SQ daily (WT < 150 kg, CrCl > 30 mL/min) *Enoxaparin/Lovenox 30 mg SQ daily (WT < 150 kg, CrCl > 10-29 mL/min) *Enoxaparin/Lovenox 30 mg SQ BID (WT < 150 kg, CrCl > 30 mL/min) AND *Sequential Compression Device (SCD) Assessment and Plan Problem List: (1) DKA (diabetic ketoacidosis) ICD Code: E13.10 - DKA (diabetic ketoacidosis) Status: Acute (2) Leukocytosis ICD Code: D72.829 - Elevated white blood cell count, unspecified Status: Resolved (3) Acute renal failure ICD Code: N17.9 - Acute kidney failure, unspecified Status: Acute (4) DM (diabetes mellitus) ICD Code: E11.9 - DM (diabetes mellitus) Status: Acute (5) Metabolic acidosis ICD Code: E87.2 - Metabolic acidosis Status: Acute Assessment and Plan Diabetic ketoacidosis continue on insulin drip continue on fluid rehydration aggressive fluid rehydration Type I insulin with poor compliance Leukocytosis with no source. Possibly secondary to viral illness or due to the actual DKA Acute renal failure secondary to dehydration we'll rehydrate. Aggressively History of medical noncompliance Positive anion gap and elevated CO2 with elevated beta hydroxybutyrate Electrolyte imbalance will correct per protocols Code Status Full code Discussed Condition With The emergency room physician carpenter assistant, nursing and RNs and patient Physician Certification 2 Midnight Certification Type: Admission for Inpatient Services Order for Inpatient Services The services are ordered in accordance with Medicare regulations or non- Medicare payer requirements, as applicable. In the case of services not specified as inpatient-only, they are appropriately provided as inpatient services in accordance with the 2-midnight benchmark. Estimated LOS (days): 2 days is the estimated time the patient will need to remain in the hospital, assuming treatment plan goals are met and no additional complications. Post-Hospital Plan: Not yet determined Problem Qualifiers (1) DKA (diabetic ketoacidosis): Qualified Codes: E10.10 - Type 1 diabetes mellitus with ketoacidosis without coma Malik Welch DO May 10, 2017 18:37
[2017-05-10 18:49] LABS: BICARBONATE 21.2 MEQ/L (21.0-32.0); CALCIUM 8.9 MG/DL (8.5-10.1); CREATININE 2.49 MG/DL (0.60-1.30); MAGNESIUM 2.6 MG/DL (1.5-2.5)
[2017-05-10 20:00] VITALS: PULSE 105
[2017-05-10 22:00] VITALS: PULSE 95
[2017-05-10 22:41] LABS: AMYLASE 175 U/L (25-115); BICARBONATE 21.3 MEQ/L (21.0-32.0); BLOOD UREA NITROGEN 49 MG/DL (7-18); CALCIUM 8.6 MG/DL (8.5-10.1); CHLORIDE 108 MEQ/L (98-107); CREATININE 2.29 MG/DL (0.60-1.30); GLOMERULAR FILTRATION RATE 42 ML/MIN (>89); GLUCOSE,RANDOM 149 MG/DL (74-106); MAGNESIUM 2.6 MG/DL (1.5-2.5); PHOSPHORUS 4.6 MG/DL (2.5-4.9); SODIUM (NA) 144 MEQ/L (136-145)
[2017-05-11] VITALS (12 sets, daily range): BP systolic 142–177; BP diastolic 85–98; PULSE 62–92; RESP 9–14; TEMP 97.6–98.9; O2SAT 95–100
[2017-05-11] MEDS: DEXT 5%-NACL 0.9% 1000 ML INJ 1,000 ML IV SCH ×3 (00:31→10:16)
[2017-05-11] MEDS: SODIUM CHLOR 0.9% 1000 ML INJ 1,000 ML IV SCH (02:31)
[2017-05-11] MEDS: CHLORHEXIDINE GLUCONATE 2 % 1 PACK (2 CLOTHS) TOP SCH (04:00)
[2017-05-11 04:59] LABS: BICARBONATE 26.3 MEQ/L (21.0-32.0); CALCIUM 8.4 MG/DL (8.5-10.1); CREATININE 2.11 MG/DL (0.60-1.30); MAGNESIUM 2.3 MG/DL (1.5-2.5)
[2017-05-11] MEDS ORDERED: DEXTROSE 50% IN WATER 50 ML VIAL(D50) IV PUSH PRN (05:30)
[2017-05-11] MEDS ORDERED: GLUCAGON 1 MG/ML VIAL OTHER PRN (05:30)
[2017-05-11] MEDS ORDERED: DC previous DKA orders (HMC 1917) ONE (05:30)
[2017-05-11] MEDS ORDERED: INSULIN REGULAR (IV INFUSION) 100 UNITS in SODIUM CHLORIDE 0.9% INJ 99 ML IV PRN ×2 (05:45→06:30)
[2017-05-11] MEDS ORDERED: INSULIN DETEMIR 100 UNITS/ML VIAL SQ SCH ×2 (06:15→09:00)
[2017-05-11] MEDS: INSULIN NovoLIN REGULAR SUPPLEMENTAL SCALE SQ SCH ×4 (08:00→20:47)
--- NOTE | 2017-05-11 08:43 | HHI.PR ---
Subjective Remarks Patient had nausea and vomiting earlier. He is feeling better currently and will try to eat breakfast. Blood glucose better controlled. He states this all started a couple of days ago when he could not eat. Objective Vitals Vital Signs Date Time Temp Pulse Resp B/P (MAP) Pulse Ox O2 Delivery O2 Flow Rate FiO2 05/11/17 06:00 88 05/11/17 04:00 77 05/11/17 02:00 86 05/11/17 00:00 90 05/10/17 22:00 95 05/10/17 20:00 105 05/10/17 18:23 05/10/17 17:03 110 18 155/69 (97) 100 Room Air 05/10/17 15:07 112 18 176/97 (123) 100 Room Air 05/10/17 12:51 106 18 100 Room Air 05/10/17 12:18 98.1 129 18 125/87 (100) 100 I/O 05/10/17 05/10/17 05/10/17 05/11/17 05/11/17 05/11/17 07:00 15:00 23:00 07:00 15:00 23:00 Intake Total 1000 ml Output Total 800 ml Balance 1000 ml -800 ml Intake IV Total 1000 ml Output Urine Total 800 ml # Bowel Movements 0 Result Diagram: 05/10/17 1309 05/11/17 0346 Imaging Last Impressions Chest X-Ray 05/10/17 0000 Signed Impressions: Service Date/Time: Wednesday, May 10, 2017 13:22 - CONCLUSION: 1. No acute cardiopulmonary findings. Tom Cabrera MD Objective Remarks GENERAL: This is a well-nourished, well-developed patient, in no apparent distress. CARDIOVASCULAR: Normal rate and regular rhythm without murmurs, gallops, or rubs. RESPIRATORY: Good respiratory efforts. Breath sounds equal and clear to auscultation bilaterally. GASTROINTESTINAL: Abdomen soft, non-tender, non-distended. Normal active bowel sounds MUSCULOSKELETAL: Extremities without cyanosis, or edema. NEURO: Alert & Oriented x4 to person, place, time, situation. Moves all ext x4 PSYCH: Appropriate mood and affect. A/P Problem List: (1) DKA (diabetic ketoacidosis) ICD Code: E13.10 - DKA (diabetic ketoacidosis) Status: Acute (2) Leukocytosis ICD Code: D72.829 - Elevated white blood cell count, unspecified Status: Resolved (3) Acute renal failure ICD Code: N17.9 - Acute kidney failure, unspecified Status: Acute (4) DM (diabetes mellitus) ICD Code: E11.9 - DM (diabetes mellitus) Status: Acute (5) Metabolic acidosis ICD Code: E87.2 - Metabolic acidosis Status: Acute Assessment and Plan 26-year-old male with type 1 diabetes admitted with DKA, possibly secondary to viral illness/gastroenteritis. DKA/type 1 diabetes: Status post insulin drip. Nausea and vomiting this morning. Currently feeling better. - Continue subcu insulin. Continue D5 half-normal saline for now. Plan to transition to half-normal saline once he starts eating. Discussed with RN. - Patient counseled on the need to be compliant with insulin therapy. - Check hemoglobin A1c Acute renal failure: Secondary to dehydration and DKA as above. -Continue IV hydration as above. - Discuss this finding with the patient at length and the risk for worsening renal function may diabetes is persistently uncontrolled. Leukocytosis with no source. -Possibly secondary to viral illness History of medical noncompliance - Patient counseled at length. Electrolyte imbalance secondary to DKA: - Replace electrolytes per protocol. Discharge Planning Probable discharge in 1-2 days pending improvement. Problem Qualifiers (1) DKA (diabetic ketoacidosis): Qualified Codes: E10.10 - Type 1 diabetes mellitus with ketoacidosis without coma Chris Cisneros MD May 11, 2017 08:43
[2017-05-11] MEDS: ONDANSETRON HCL 4 MG/2 ML VIAL IV PUSH PRN ×2 (10:33→17:21)
[2017-05-11] MEDS ORDERED: DC Insulin drip 2 hrs post basal insulin dose ONE (10:59)
[2017-05-11] MEDS: METOCLOPRAMIDE HCL 10 MG/2 ML VIAL IV PUSH PRN ×2 (14:06→20:47)
[2017-05-11 16:25] LABS: HEMOGLOBIN A1C 9.8 % (4.3-6.0)
[2017-05-11 16:36] LABS: BICARBONATE 22.3 MEQ/L (21.0-32.0); CALCIUM 8.3 MG/DL (8.5-10.1); CREATININE 1.58 MG/DL (0.60-1.30); MAGNESIUM 2.1 MG/DL (1.5-2.5); PHOSPHORUS 1.4 MG/DL (2.5-4.9)
[2017-05-11 16:56] LABS: BILIRUBIN, URINE NEG (NEG); BLOOD, URINE TRACE (NEG); GLUCOSE,URINE NEG (NEG); KETONE, URINE 10 mg/dL (NEG); NITRITE,URINE NEG (NEG); PH, URINE 5.5 (5.0-8.5); URINE COLOR YELLOW (YELLW/STRAW); URINE LEUKOCYTE ESTERASE NEG (NEG)
[2017-05-11 20:38] LABS: BICARBONATE 21.6 MEQ/L (21.0-32.0); CALCIUM 8.7 MG/DL (8.5-10.1); CREATININE 1.64 MG/DL (0.60-1.30)
[2017-05-11 20:40] LABS: PHOSPHORUS 1.4 MG/DL (2.5-4.9)
[2017-05-11] MEDS ORDERED: PROMETHAZINE INJ 25 MG/ML VIAL IM PRN (21:45)
--- NOTE | 2017-05-11 22:13 | RADRPT ---
EXAM DATE/TIME: 05/11/2017 21:48 [facility] COMPARISON: No previous studies available for comparison. INDICATIONS : Abdominal discomfort. Nausea. MEDICAL HISTORY : Diabetes mellitus type 2. SURGICAL HISTORY : None. ENCOUNTER: Initial ACUITY: 1 day PAIN SCORE: 0/10 LOCATION: abdomen. FINDINGS: Supine view of the abdomen was performed. The abdominal bowel gas pattern is normal. Mild rotatory l evoscoliosis. No obstruction or free air. CONCLUSION: 1. No acute findings. Mild scoliosis. Samuel Vivar MD on May 11, 2017 at 22:10 Board Certified Radiologist. This report was verified electronically.
[2017-05-12] VITALS (12 sets, daily range): BP systolic 137–163; BP diastolic 81–98; PULSE 68–100; RESP 13–27; TEMP 98.4–100; O2SAT 99–100
[2017-05-12] MEDS ORDERED: POTASSIUM PHOSPHATE INJ 30 MMOL in SODIUM CHLOR 0.9% 250 ML INJ 250 ML IV ONE ×2
[2017-05-12] MEDS: ONDANSETRON HCL 4 MG/2 ML VIAL IV PUSH PRN ×2 (00:54→08:35)
[2017-05-12] MEDS: hydrALAZINE HCL 20 MG/ML VIAL IV PUSH PRN ×3 (02:03→22:17)
[2017-05-12] MEDS: METOCLOPRAMIDE HCL 10 MG/2 ML VIAL IV PUSH PRN ×2 (03:31→11:41)
[2017-05-12] MEDS: CHLORHEXIDINE GLUCONATE 2 % 1 PACK (2 CLOTHS) TOP SCH (03:36)
[2017-05-12] MEDS: DEXT 5%-NACL 0.9% 1000 ML INJ 1,000 ML IV SCH ×3 (05:28→20:18)
[2017-05-12] MEDS: POTASSIUM CHLOR 20 MEQ PREMIX 100 ML IV SCH ×2 (06:17→10:15)
[2017-05-12 07:01] LABS: HEMATOCRIT 32.4 % (39.0-51.0); HEMOGLOBIN 11.1 GM/DL (13.0-17.0); MEAN CELL VOLUME 90.6 FL (80.0-100.0); MEAN CORPUSCULAR HEMOGLOBIN 31.1 PG (27.0-34.0); MEAN CORPUSCULAR HGB CONC 34.3 % (32.0-36.0); MEAN PLATELET VOLUME 9.3 FL (7.0-11.0); PLATELET COUNT 221 TH/MM3 (150-450); RED BLOOD COUNT 3.58 MIL/MM3 (4.50-5.90); RED CELL DISTRIBUTION WIDTH 13.1 % (11.6-17.2); WHITE BLOOD COUNT 10.8 TH/MM3 (4.0-11.0)
[2017-05-12 07:17] LABS: BICARBONATE 22.5 MEQ/L (21.0-32.0); CALCIUM 8.2 MG/DL (8.5-10.1); CREATININE 1.44 MG/DL (0.60-1.30)
--- NOTE | 2017-05-12 07:47 | EKG ---
Date Performed: 05/10/2017 Time Performed: 14:49:29 PTAGE: 26 years EKG: SINUS TACHYCARDIA WITH SHORT WA INTERVAL NONSPECIFIC T-WAVE ABNORMALITY Compared to previou s tracing sinus rate is faster, nonspecific changes are new ABNORMAL RHYTHM ECG PREVIOUS TRACING : 01/06/2017 17.44 DOCTOR: Bill Malone Interpretating Date/Time 05/12/2017 07:46:50
[2017-05-12] MEDS: INSULIN NovoLIN REGULAR SUPPLEMENTAL SCALE SQ SCH ×4 (08:00→20:38)
--- NOTE | 2017-05-12 09:13 | HHI.PR ---
Subjective Remarks Patient is still experiencing nausea and vomiting. Blood glucose acceptable this morning. Objective Vitals Vital Signs Date Time Temp Pulse Resp B/P (MAP) Pulse Ox O2 Delivery O2 Flow Rate FiO2 05/12/17 06:00 68 05/12/17 04:00 98.4 79 16 142/81 (101) 100 05/12/17 04:00 79 05/12/17 02:00 85 05/12/17 00:00 98.4 74 20 137/98 (111) 100 05/12/17 00:00 74 05/11/17 22:00 92 05/11/17 20:00 98.4 70 13 177/96 (123) 95 05/11/17 20:00 70 05/11/17 18:00 75 05/11/17 16:00 62 05/11/17 16:00 98.9 62 9 168/86 (113) 97 05/11/17 14:00 84 05/11/17 12:00 97.9 74 14 142/85 (104) 100 05/11/17 12:00 74 05/11/17 10:00 91 I/O 05/11/17 05/11/17 05/11/17 05/12/17 05/12/17 05/12/17 07:00 15:00 23:00 07:00 15:00 23:00 Intake Total 25 ml 2120 ml 1346 ml Output Total 800 ml 900 ml 450 ml Balance -800 ml 25 ml 1220 ml 896 ml Intake Oral 720 ml IV Total 25 ml 1400 ml 1346 ml Output Urine Total 800 ml 900 ml 450 ml # Voids 1 # Bowel Movements 0 1 1 Result Diagram: 05/12/17 0541 05/12/17 0541 Objective Remarks GENERAL: This is a well-nourished, well-developed patient, in no apparent distress. CARDIOVASCULAR: Normal rate and regular rhythm without murmurs, gallops, or rubs. RESPIRATORY: Good respiratory efforts. Breath sounds equal and clear to auscultation bilaterally. GASTROINTESTINAL: Abdomen soft, non-tender, non-distended. Normal active bowel sounds MUSCULOSKELETAL: Extremities without cyanosis, or edema. NEURO: Alert & Oriented x4 to person, place, time, situation. Moves all ext x4 PSYCH: Appropriate mood and affect. A/P Problem List: (1) DKA (diabetic ketoacidosis) ICD Code: E13.10 - DKA (diabetic ketoacidosis) Status: Acute (2) Leukocytosis ICD Code: D72.829 - Elevated white blood cell count, unspecified Status: Resolved (3) Acute renal failure ICD Code: N17.9 - Acute kidney failure, unspecified Status: Acute (4) DM (diabetes mellitus) ICD Code: E11.9 - DM (diabetes mellitus) Status: Acute (5) Metabolic acidosis ICD Code: E87.2 - Metabolic acidosis Status: Acute Assessment and Plan 26-year-old male with type 1 diabetes admitted with DKA, possibly secondary to viral illness/gastroenteritis. DKA/type 1 diabetes: Status post insulin drip. Persistent nausea and vomiting. KUB unremarkable - Continue subcu insulin. Continue D5 half-normal saline for now. Plan to transition to half-normal saline once he starts eating. Discussed with RN. - Patient counseled on the need to be compliant with insulin therapy. - Check hemoglobin A1c Intractable nausea and vomiting: Symptoms are intermittent. - KUB unremarkable. No significant abdominal pain. - Continue with anti-emetics. PPI. - Consider abdominal CT if no improvement. Acute renal failure: Secondary to dehydration and DKA as above. Much improved. -Continue IV hydration as above. Leukocytosis with no source: Resolved -Possibly secondary to viral illness History of medical noncompliance - Patient counseled at length. Hypertension: - He admits to a history of hypertension. Has not been on medications. - Start lisinopril. PRN ordered Electrolyte imbalance secondary to DKA: - Replace electrolytes per protocol. Discharge Planning Continue care in the ICU. Replace electrolytes. At risk for falling back into DKA given persistent nausea and vomiting Problem Qualifiers (1) DKA (diabetic ketoacidosis): Qualified Codes: E10.10 - Type 1 diabetes mellitus with ketoacidosis without coma Chris Cisneros MD May 12, 2017 09:13
[2017-05-12] MEDS ORDERED: LISINOPRIL 5 MG TAB PO SCH (09:15)
[2017-05-12] MEDS ORDERED: INFLUENZA VIRUS VACCINE (QUADRIVALENT) 0.5 ML SYR IM ONE (10:00)
[2017-05-12] MEDS ORDERED: CALCIUM CARBONATE 500 MG CHEWABLE TAB CHEW PRN (11:00)
[2017-05-12] MEDS: PANTOPRAZOLE SODIUM 40 MG VIAL IV PUSH SCH ×2 (12:30→20:38)
[2017-05-13] VITALS (15 sets, daily range): BP systolic 103–181; BP diastolic 52–109; PULSE 76–104; RESP 15–25; TEMP 98–99.6; O2SAT 99–100
[2017-05-13] MEDS: CHLORHEXIDINE GLUCONATE 2 % 1 PACK (2 CLOTHS) TOP SCH (02:11)
[2017-05-13] MEDS: DEXT 5%-NACL 0.9% 1000 ML INJ 1,000 ML IV SCH (02:12)
[2017-05-13] MEDS: hydrALAZINE HCL 20 MG/ML VIAL IV PUSH PRN (04:09)
[2017-05-13 05:20] LABS: HEMATOCRIT 36.4 % (39.0-51.0); HEMOGLOBIN 12.3 GM/DL (13.0-17.0); MEAN CELL VOLUME 91.8 FL (80.0-100.0); MEAN CORPUSCULAR HGB CONC 33.8 % (32.0-36.0); MEAN PLATELET VOLUME 9.8 FL (7.0-11.0); PLATELET COUNT 187 TH/MM3 (150-450); RED BLOOD COUNT 3.96 MIL/MM3 (4.50-5.90); WHITE BLOOD COUNT 8.4 TH/MM3 (4.0-11.0)
[2017-05-13 05:51] LABS: BICARBONATE 20.5 MEQ/L (21.0-32.0); CALCIUM 8.4 MG/DL (8.5-10.1); CREATININE 1.32 MG/DL (0.60-1.30)
[2017-05-13] MEDS ORDERED: INSULIN HUMAN REGULAR 1,000 UNITS/10 ML VIAL IV PUSH ONE (06:15)
[2017-05-13] MEDS: SODIUM CHLOR 0.9% 1000 ML INJ 1,000 ML IV SCH ×2 (06:28→18:11)
[2017-05-13] MEDS: INSULIN NovoLIN REGULAR SUPPLEMENTAL SCALE SQ SCH ×4 (08:00→21:00)
--- NOTE | 2017-05-13 08:35 | HHI.PR ---
Subjective Remarks Patient reports he is feeling slightly better today. He was able to eat a little bit of dinner last night. No nausea vomiting this morning. Blood glucose very labile. Objective Vitals Vital Signs Date Time Temp Pulse Resp B/P (MAP) Pulse Ox O2 Delivery O2 Flow Rate FiO2 05/13/17 06:00 102 05/13/17 04:00 98.8 85 15 181/109 (133) 100 05/13/17 04:00 85 05/13/17 02:00 92 05/13/17 00:00 104 05/13/17 00:00 99.6 104 15 163/96 (118) 99 05/12/17 22:00 72 05/12/17 20:00 98.8 74 13 157/92 (113) 100 05/12/17 20:00 74 05/12/17 18:00 81 05/12/17 16:00 100.0 100 25 151/91 (111) 99 05/12/17 16:00 100 05/12/17 14:00 86 05/12/17 12:00 98.8 93 27 152/90 (110) 100 05/12/17 12:00 93 05/12/17 10:00 81 I/O 05/12/17 05/12/17 05/12/17 05/13/17 05/13/17 05/13/17 07:00 15:00 23:00 07:00 15:00 23:00 Intake Total 1346 ml 200 ml 1873 ml 1655 ml Output Total 450 ml 675 ml 1540 ml Balance 896 ml 200 ml 1198 ml 115 ml Intake Oral 475 ml 260 ml IV Total 1346 ml 200 ml 1398 ml 1395 ml Output Urine Total 450 ml 675 ml 1540 ml # Voids 2 # Bowel Movements 1 1 Result Diagram: 05/13/17 0415 05/13/17 0415 Objective Remarks GENERAL: This is a well-nourished, well-developed patient, in no apparent distress. CARDIOVASCULAR: Normal rate and regular rhythm without murmurs, gallops, or rubs. RESPIRATORY: Good respiratory efforts. Breath sounds equal and clear to auscultation bilaterally. GASTROINTESTINAL: Abdomen soft, non-tender, non-distended. Normal active bowel sounds MUSCULOSKELETAL: Extremities without cyanosis, or edema. NEURO: Alert & Oriented x4 to person, place, time, situation. Moves all ext x4 PSYCH: Appropriate mood and affect. A/P Problem List: (1) DKA (diabetic ketoacidosis) ICD Code: E13.10 - DKA (diabetic ketoacidosis) Status: Acute (2) Leukocytosis ICD Code: D72.829 - Elevated white blood cell count, unspecified Status: Resolved (3) Acute renal failure ICD Code: N17.9 - Acute kidney failure, unspecified Status: Acute (4) DM (diabetes mellitus) ICD Code: E11.9 - DM (diabetes mellitus) Status: Acute (5) Metabolic acidosis ICD Code: E87.2 - Metabolic acidosis Status: Acute Assessment and Plan 26-year-old male with type 1 diabetes admitted with DKA, possibly secondary to viral illness/gastroenteritis. DKA/type 1 diabetes: Status post insulin drip. He had persistent nausea and vomiting, this is much improved. KUB unremarkable -Discontinue D5 normal saline. Transition to normal saline. - Patient counseled on the need to be compliant with insulin therapy. -Hemoglobin A1c of 9.8. - Resume Levemir at a lower dose, 10 mg every 12 hours. Continue sliding scale insulin with Accu-Cheks Intractable nausea and vomiting: Likely viral gastroenteritis. Gastroparesis may also be contributing. Much improved. - KUB unremarkable. No significant abdominal pain. - Continue with anti-emetics. PPI. - Consider abdominal CT and gastric emptying study if symptoms return. -Diet as tolerated Acute renal failure: Secondary to dehydration and DKA as above. Much improved. -Continue IV hydration as above. Leukocytosis with no source: Resolved -Possibly secondary to viral illness History of medical noncompliance - Patient counseled at length. Hypertension: - He admits to a history of hypertension. Has not been on medications. -Patient was started on lisinopril, increase to 10 mg daily. PRN antihypertensives ordered Electrolyte imbalance secondary to DKA: - Replace electrolytes per protocol. Discharge Planning Stable for transfer to floor. If he continues to improve, possible discharge tomorrow. Problem Qualifiers (1) DKA (diabetic ketoacidosis): Qualified Codes: E10.10 - Type 1 diabetes mellitus with ketoacidosis without coma Chris Cisneros MD May 13, 2017 08:35
[2017-05-13] MEDS: PANTOPRAZOLE SODIUM 40 MG VIAL IV PUSH SCH ×2 (08:51→22:04)
[2017-05-13] MEDS: INSULIN DETEMIR 100 UNITS/ML VIAL SQ SCH ×2 (08:51→22:03)
[2017-05-13] MEDS: LISINOPRIL 10 MG TAB PO SCH (08:58)
[2017-05-14] MEDS: SODIUM CHLOR 0.9% 1000 ML INJ 1,000 ML IV SCH (05:25)
[2017-05-14 08:00] VITALS: BP_SYST 154; BP_SYST 155; BP_DIAS 91; BP_DIAS 98; PULSE 64; PULSE 74; RESP 16; TEMP 97; TEMP 97.1; O2SAT 100
[2017-05-14] MEDS: INSULIN NovoLIN REGULAR SUPPLEMENTAL SCALE SQ SCH ×4 (08:00→21:00)
[2017-05-14 08:16] LABS: BICARBONATE 24.2 MEQ/L (21.0-32.0); CALCIUM 8.1 MG/DL (8.5-10.1); CREATININE 1.09 MG/DL (0.60-1.30)
[2017-05-14] MEDS: PANTOPRAZOLE SODIUM 40 MG VIAL IV PUSH SCH ×2 (08:32→21:51)
[2017-05-14] MEDS: INSULIN DETEMIR 100 UNITS/ML VIAL SQ SCH (08:32)
[2017-05-14] MEDS: LISINOPRIL 10 MG TAB PO SCH (08:32)
[2017-05-14] MEDS ORDERED: POTASSIUM CHLORIDE 10 MEQ CONTROLLED RELEASE TAB PO ONE (08:45)
[2017-05-14] MEDS ORDERED: POTASSIUM CHLOR 20 MEQ PREMIX 100 ML IV ONE (09:00)
--- NOTE | 2017-05-14 13:16 | HHI.PR ---
Subjective Remarks Blood glucose dropped to the 30s earlier this morning. Levemir has been put on hold. Patient reports he is feeling better overall. He is able to eat. Potassium is low at 2.8. Objective Vitals Vital Signs Date Time Temp Pulse Resp B/P (MAP) Pulse Ox O2 Delivery O2 Flow Rate FiO2 05/14/17 08:00 97.1 64 16 155/98 (117) 100 05/13/17 23:46 Room Air 05/13/17 23:00 98.8 86 17 158/95 (116) 99 05/13/17 21:00 99.1 83 17 155/97 (116) 100 05/13/17 15:00 79 05/13/17 14:00 87 I/O 05/13/17 05/13/17 05/13/17 05/14/17 05/14/17 05/14/17 07:00 15:00 23:00 07:00 15:00 23:00 Intake Total 1655 ml 132 ml 1180 ml 1240 ml Output Total 1540 ml 1300 ml Balance 115 ml 132 ml -120 ml 1240 ml Intake Oral 260 ml 1180 ml 240 ml IV Total 1395 ml 132 ml 1000 ml Output Urine Total 1540 ml 1300 ml # Voids 2 1 # Bowel Movements 0 0 Result Diagram: 05/13/17 0415 05/14/17 0657 Objective Remarks GENERAL: This is a well-nourished, well-developed patient, in no apparent distress. CARDIOVASCULAR: Normal rate and regular rhythm without murmurs, gallops, or rubs. RESPIRATORY: Good respiratory efforts. Breath sounds equal and clear to auscultation bilaterally. GASTROINTESTINAL: Abdomen soft, non-tender, non-distended. Normal active bowel sounds MUSCULOSKELETAL: Extremities without cyanosis, or edema. NEURO: Alert & Oriented x4 to person, place, time, situation. Moves all ext x4 PSYCH: Appropriate mood and affect. A/P Problem List: (1) DKA (diabetic ketoacidosis) ICD Code: E13.10 - DKA (diabetic ketoacidosis) Status: Acute (2) Leukocytosis ICD Code: D72.829 - Elevated white blood cell count, unspecified Status: Resolved (3) Acute renal failure ICD Code: N17.9 - Acute kidney failure, unspecified Status: Acute (4) DM (diabetes mellitus) ICD Code: E11.9 - DM (diabetes mellitus) Status: Acute (5) Metabolic acidosis ICD Code: E87.2 - Metabolic acidosis Status: Acute Assessment and Plan 26-year-old male with type 1 diabetes admitted with DKA, possibly secondary to viral illness/gastroenteritis. DKA/type 1 diabetes: Status post insulin drip. He had persistent nausea and vomiting, this is resolved. KUB unremarkable -Blood glucose is widely labile. Hypoglycemic this morning in the 30s. Hold Levemir -Hemoglobin A1c of 9.8. - Continue sliding scale insulin with Accu-Cheks Intractable nausea and vomiting: Likely viral gastroenteritis. Gastroparesis may also be contributing. Resolved - KUB unremarkable. No significant abdominal pain. - Continue with anti-emetics and PPI as needed. Acute renal failure: Secondary to dehydration and DKA as above. Resolved. -Discontinue IV fluid Leukocytosis with no source: Resolved -Possibly secondary to viral illness History of medical noncompliance - Patient counseled at length. Hypokalemia: - Replace and monitor. Hypertension: - He admits to a history of hypertension. Has not been on medications. -BP still uncontrolled. Increase lisinopril to 20 mg daily. PRN antihypertensives ordered Discharge Planning Will probably be ready for discharge tomorrow. Problem Qualifiers (1) DKA (diabetic ketoacidosis): Qualified Codes: E10.10 - Type 1 diabetes mellitus with ketoacidosis without coma Chris Cisneros MD May 14, 2017 13:16
[2017-05-14 16:00] VITALS: BP 160/98; PULSE 69; RESP 16; TEMP 97.6; O2SAT 100
[2017-05-14 20:00] VITALS: BP 163/97; PULSE 81; RESP 18; TEMP 98.6; O2SAT 100
[2017-05-15] VITALS: BP 164/105; PULSE 73; RESP 18; TEMP 97.5; O2SAT 100
[2017-05-15] MEDS ORDERED: ENALAPRILAT 2.5 MG/2 ML VIAL IV PUSH ONE (00:15)
[2017-05-15 04:00] VITALS: BP_SYST 109; BP_SYST 159; BP_DIAS 68; BP_DIAS 90; PULSE 76; PULSE 92; RESP 16; RESP 20; TEMP 98; TEMP 98.8; O2SAT 97; O2SAT 98
[2017-05-15 07:58] LABS: BICARBONATE 25.5 MEQ/L (21.0-32.0); CALCIUM 7.9 MG/DL (8.5-10.1); CREATININE 1.28 MG/DL (0.60-1.30)
[2017-05-15 08:00] VITALS: BP 168/101; PULSE 71; RESP 16; TEMP 98.2; O2SAT 100
[2017-05-15] MEDS: INSULIN NovoLIN REGULAR SUPPLEMENTAL SCALE SQ SCH ×2 (08:46→13:17)
[2017-05-15] MEDS: PANTOPRAZOLE SODIUM 40 MG VIAL IV PUSH SCH (08:47)
[2017-05-15] MEDS ORDERED: LISINOPRIL 10 MG TAB PO SCH (09:00)
[2017-05-15] MEDS ORDERED: LISI-515 PO (09:54)
--- NOTE | 2017-05-15 09:55 | HHI.DS ---
Discharge Summary Admission Date May 10, 2017 at 15:46 Discharge Date: May 15, 2017 Admitting Diagnosis DKA (1) DKA (diabetic ketoacidosis) ICD Code: E13.10 - DKA (diabetic ketoacidosis) Status: Acute (2) Leukocytosis ICD Code: D72.829 - Elevated white blood cell count, unspecified Status: Resolved (3) Acute renal failure ICD Code: N17.9 - Acute kidney failure, unspecified Status: Acute (4) DM (diabetes mellitus) ICD Code: E11.9 - DM (diabetes mellitus) Status: Acute (5) Metabolic acidosis ICD Code: E87.2 - Metabolic acidosis Status: Acute Procedures None Brief History - From Admission Patient is a 26-year-old type I diabetic male who presents to the emergency department with his family with altered mental status and lethargy. It started at 9 PM last night. Patient mother states that was "not feeling good" He did not eat yesterday. Mother does not believe that he has had a fever chills. Patient not able to tell much. Blood sugars were around 600s morning he took his insulin Lantus 60 units and NovoLog 30 units early this morning and again did not eat Patient therefore presented to the emergency department and was found to be in diabetic ketoacidosis CBC/BMP: 05/13/17 0415 05/15/17 0701 Significant Findings Laboratory Tests Test 05/13/17 04:15 05/13/17 19:20 05/14/17 06:57 05/15/17 07:01 Red Blood Count 3.96 MIL/MM3 (4.50-5.90) Hemoglobin 12.3 GM/DL (13.0-17.0) Hematocrit 36.4 % (39.0-51.0) Creatinine 1.32 MG/DL (0.60-1.30) Random Glucose 406 MG/DL (74-106) 37 MG/DL (74-106) 353 MG/DL (74-106) Calcium Level 8.4 MG/DL (8.5-10.1) 8.1 MG/DL (8.5-10.1) 7.9 MG/DL (8.5-10.1) Carbon Dioxide Level 20.5 MEQ/L (21.0-32.0) Estimat Glomerular Filtration Rate 80 ML/MIN (>89) 83 ML/MIN (>89) Potassium Level 2.8 MEQ/L (3.5-5.1) Sodium Level 135 MEQ/L (136-145) Imaging Last Impressions Abdomen X-Ray 05/11/17 0000 Signed Impressions: Service Date/Time: Thursday, May 11, 2017 21:48 - CONCLUSION: 1. No acute findings. Mild scoliosis. Samuel Vivar MD Chest X-Ray 05/10/17 0000 Signed Impressions: Service Date/Time: Wednesday, May 10, 2017 13:22 - CONCLUSION: 1. No acute cardiopulmonary findings. Tom Cabrera MD PE at Discharge GENERAL: This is a well-nourished, well-developed patient, in no apparent distress. CARDIOVASCULAR: Normal rate and regular rhythm without murmurs, gallops, or rubs. RESPIRATORY: Good respiratory efforts. Breath sounds equal and clear to auscultation bilaterally. GASTROINTESTINAL: Abdomen soft, non-tender, non-distended. Normal active bowel sounds MUSCULOSKELETAL: Extremities without cyanosis, or edema. NEURO: Alert & Oriented x4 to person, place, time, situation. Moves all ext x4 PSYCH: Appropriate mood and affect. Pt update on day of discharge Patient reports is feeling back to his baseline. Blood glucose still somewhat labile. He states he can manage his diabetes at home. Tolerating his diet. Hospital Course 26-year-old male with type 1 diabetes admitted with DKA, possibly secondary to viral illness/gastroenteritis. Evaluation and treatment course detailed below: DKA/type 1 diabetes: Status post insulin drip. He had persistent nausea and vomiting, this is resolved. KUB unremarkable -Blood glucose labile and patient had episodes of hypoglycemia. Long-acting insulin was held. He is advised to cut long-acting insulin and half at home and monitor his blood glucose frequently. Patient advised to follow-up outpatient with PCP -Hemoglobin A1c of 9.8. Intractable nausea and vomiting: Likely viral gastroenteritis. Gastroparesis may also be contributing. Resolved - KUB unremarkable. No significant abdominal pain. Acute renal failure: Secondary to dehydration and DKA as above. Resolved. Leukocytosis with no source: Resolved -Possibly secondary to viral illness History of medical noncompliance - Patient counseled at length. Hypokalemia: - Replaced. Hypertension: - He admits to a history of hypertension. Has not been on medications. -BP was difficult to control. He was started on lisinopril and dose titrated to 20 mg daily he does need outpatient follow-up with PCP as he may need further titration of antihypertensives. Pt Condition on Discharge: Good Discharge Disposition: Discharge Home Discharge Time: <= 30 minutes Discharge Instructions DIET: Follow Instructions for: Diabetic Diet Activities you can perform: Regular-No Restrictions Follow up Referrals: PCP Follow-up - 1 Week New Medications: Lisinopril (Lisinopril) 20 Mg Tab 20 MG PO DAILY, #30 TAB 0 Refills Continued Medications: Insulin Aspart Inj (Novolog Inj) 1,000 Unit/10 Ml Vial 10 UNIT SQ DIRECTED for Blood Sugar Management, #10 ML 0 Refills Sliding Scale as directed. Insulin Glargine Inj (Lantus Inj) 1,000 Unit/10 Ml Vial 30 UNITS SQ DAILY for Blood Sugar Management, #1 VIAL 0 Refills Discontinued Medications: Ondansetron (Zofran) 4 Mg Tab 4 MG PO Q6HR PRN for NAUSEA OR VOMITING, #10 TAB 0 Refills Chris Cisneros MD May 15, 2017 09:55
--- NOTE | 2017-05-15 09:55 | HHI.DCPOC ---
Discharge Care Plan Diagnosis: (1) DKA (diabetic ketoacidosis) (2) Metabolic acidosis (3) Hypertension (4) Acute renal failure (5) DM (diabetes mellitus) Goals to Promote Your Health * To prevent worsening of your condition and complications * To maintain your health at the optimal level Directions to Meet Your Goals Take your medications as prescribed Follow your dietary instruction Follow activity as directed Keep your appointments as scheduled Take your immunizations and boosters as scheduled If your symptoms worsen call your PCP, if no PCP go to Urgent Care Center or Emergency Room Smoking is Dangerous to Your Health. Avoid second hand smoke Call the 24-hour hour crisis hotline for domestic abuse at Chris Cisneros MD May 15, 2017 09:55
[2017-05-15 12:00] VITALS: BP 120/83; PULSE 91; RESP 16; TEMP 96.7; O2SAT 100
== END 2017-05-15 15:12 | disposition home or self-care (01) | DRG 638 ==
LOC: NEPC 12:17 → NEDA 15:46 → HIME 18:08 → N06A 05-13 15:41
PROVIDERS: ADMIT Family Medicine; ATTEND Family Medicine
DX: E10.10 Type 1 diabetes mellitus with ketoacidosis without coma (principal); N17.9 Acute kidney failure, unspecified; Z79.4 Long term (current) use of insulin; Z91.19 Patient's noncompliance with other medical treatment and regimen; E86.0 Dehydration; A08.4 Viral intestinal infection, unspecified; E87.6 Hypokalemia; I10 Essential (primary) hypertension; Z23 Encounter for immunization
CPT/HCPCS: 71045; 74018; 80048; 80053; 81001; 82010; 82140; 82150; 82805; 82947; 82948; 83036; 83690; 83735; 84100; 85025; 85027; 87641; 90686; 93005; 96361; 96374; 96375; C9113; J0360; J1815; J1817; J2405; J2550; J2765; J3480; J7030; J7042; J7050; Q2038

== ENCOUNTER 2017-07-15 18:11 | Inpatient (IN) | payer BC ==
[~2017-07-15] VITALS: Ht 185.4 cm; Wt 62.2 kg
[~2017-07-15 18:11] MED LIST changes: -HUMALOG SQ; +LANTUS2P SQ; +LISI-515 PO; -ZOFR4TAB PO
[2017-07-15 18:26] VITALS: BP 176/100; PULSE 99; RESP 18; TEMP 98.6; O2SAT 100
[2017-07-15] MEDS ORDERED: SODIUM CHLOR 0.9% 1000 ML INJ 1,000 ML IV ONE ×3 (18:28→20:30)
[2017-07-15] MEDS ORDERED: SODIUM CHLORIDE 0.9% FLUSH 10 ML FLUSH IVF PRN (18:30)
[2017-07-15 18:32] VITALS: BP 176/100; PULSE 102; PULSE 103; RESP 18; RESP 20; TEMP 98.6; O2SAT 100
--- NOTE | 2017-07-15 18:41 | PD ---
HPI . Hypoglycemia Chief Complaint: Diabetic Time Seen by Provider: 18:38 Travel History International Travel<30 days: No Contact w/Intl Traveler<30days: No Traveled to known affect area: No History of Present Illness HPI This patient presents to us by EVAC and is accompanied here by his parents with chief complaint of hypoglycemia associated with nausea, vomiting and altered mental status. The patient is unable to give any history at all because of his mental status. History is obtained from his parents. He is a known diabetic. They state that he was fine yesterday. His symptoms seem to have started sometime between last night and this afternoon. His mother found him to be hyperglycemic this afternoon and gave him his sliding scale insulin. His sugar has basically normalized but his mental status and nausea/vomiting have continued. He was subsequently brought to us for treatment. [facility] Past Medical History Anxiety: No Depression: No Cancer: No Cardiovascular Problems: Yes (HTN ) Diabetes: Yes (TYPE 1 ) Diminished Hearing: No Endocrine: Yes Genitourinary: No Immune Disorder: No Implanted Vascular Access Dvce: No Musculoskeletal: No Neurologic: No Psychiatric: No Reproductive: No Respiratory: No Immunizations Current: Yes Thyroid Disease: No Past Surgical History Insulin Pump: No Other Surgery: No Social History Alcohol Use: No Tobacco Use: No Substance Use: No Allergies-Medications (Allergen,Severity, Reaction): Coded Allergies: No Known Allergies (Unverified Adverse Reaction, Unknown, 05/10/17) Reported Meds & Prescriptions Reported Meds & Active Scripts Active Lisinopril 20 Mg Tab 20 Mg PO DAILY Reported Lantus Inj (Insulin Glargine) 1,000 Unit/10 Ml Vial 30 Units SQ DAILY Novolog Inj (Insulin Aspart) 1,000 Unit/10 Ml Vial 10 Unit SQ DIRECTED Sliding Scale as directed. Review of Systems ROS Limitations: Altered Mental Status Physical Exam Narrative GENERAL: Patient is lying on the bed with his eyes closed. He is not answering questions. He is following simple commands though. SKIN: warm/dry. Good color and turgor. HEAD: Normocephalic. Atraumatic. EYES: Pupils equal and round. No scleral icterus. No injection or drainage. ENT: No nasal bleeding or discharge. Mucous membranes pink and moist. I do not smell ketones. NECK: Trachea midline. Full range of motion without pain.. CARDIOVASCULAR: Regular rate and rhythm. Heart sounds are normal. RESPIRATORY: No accessory muscle use. Clear to auscultation. Breath sounds equal bilaterally. GASTROINTESTINAL: Abdomen soft. Nontender. Bowel sounds present. Nondistended. MUSCULOSKELETAL: No obvious deformities. NEUROLOGICAL: Sleepy. Does follow commands. PSYCHIATRIC: Unable to assess. Data Data Last Documented VS Vital Signs Date Time Temp Pulse Resp B/P (MAP) Pulse Ox O2 Delivery O2 Flow Rate FiO2 07/15/17 18:32 98.6 102 20 176/100 (125) 100 Room Air Orders Orders Electrocardiogram (07/15/17 18:28) Complete Blood Count With Diff (07/15/17 18:28) Comprehensive Metabolic Panel (07/15/17 18:28) Magnesium (Mg) (07/15/17:) Phosphorus (Po4) (07/15/17 18:28) Beta Hydroxybutyrate (Acetone) (07/15/17 18:28) Urinalysis - C+S If Indicated (07/15/17 18:28) Blood Gas Venous (Vbg) (07/15/17 18:28) Blood Glucose (07/15/17 18:28) Blood Glucose (07/15/17 19:28) Ecg Monitoring (07/15/17 18:28) Iv Access Insert/Monitor (07/15/17 18:28) Oximetry (07/15/17 18:28) NPO (07/15/17 18:28) Sodium Chlor 0.9% 1000 Ml Inj (Ns 1000 M (07/15/17 18:28) Sodium Chlor 0.9% 1000 Ml Inj (Ns 1000 M (07/15/17 18:58) Sodium Chloride 0.9% Flush (Ns Flush) (07/15/17 18:30) [facility] Medical Decision Making Medical Screen Exam Complete: Yes Emergency Medical Condition: Yes Differential Diagnosis Differential diagnosis of hyperglycemia includes but is not limited to dietary indiscretion, medication noncompliance, infection, [place] Narrative Course This patient presents with chief complaint of hyperglycemia, nausea and vomiting and altered mental status. He was given sliding scale insulin this afternoon by his mother. His sugar is now in the 100s. He is being given a 2 L fluid bolus. Workup to rule out DKA is in process. His care will be turned over to the oncoming physician at 7 PM. Diagnosis Primary Impression: Hyperglycemia Additional Impression: Altered mental status Qualified Codes: R40.4 - Transient alteration of awareness Condition: Stable Yamilet Wesley MD Jul 15, 2017 18:41
[2017-07-15] MEDS ORDERED: PROCHLORPERAZINE INJ 10 MG/2 ML VIAL IV PUSH ONE (19:00)
[2017-07-15] MEDS ORDERED: diphenhydrAMINE HCL 50 MG/ML VIAL IV PUSH ONE (19:00)
[2017-07-15 19:27] LABS: AUTOMATED NEUTROPHIL # 11.2 TH/MM3 (1.8-7.7); BASOPHIL # 0.1 TH/MM3 (0-0.2); BASOPHIL % 0.6 % (0.0-2.0); HEMATOCRIT 40.9 % (39.0-51.0); HEMOGLOBIN 13.9 GM/DL (13.0-17.0); LYMPHOCYTE # 2.6 TH/MM3 (1.0-4.8); MEAN CELL VOLUME 87.8 FL (80.0-100.0); MEAN CORPUSCULAR HEMOGLOBIN 29.8 PG (27.0-34.0); MEAN PLATELET VOLUME 10.4 FL (7.0-11.0); MONO % 4.9 % (0.0-8.0); MONOCYTE # 0.7 TH/MM3 (0-0.9); NEUT % 76.5 % (16.0-70.0); PLATELET COUNT 308 TH/MM3 (150-450); RED BLOOD COUNT 4.66 MIL/MM3 (4.50-5.90); RED CELL DISTRIBUTION WIDTH 12.4 % (11.6-17.2); WHITE BLOOD COUNT 14.6 TH/MM3 (4.0-11.0)
[2017-07-15 19:52] LABS: ALT (GPT) 16 U/L (12-78); PHOSPHORUS 1.4 MG/DL (2.5-4.9)
[2017-07-15 19:57] LABS: BILIRUBIN, URINE NEG (NEG); BLOOD, URINE MOD (NEG); GLUCOSE,URINE 70 mg/dL (NEG); HYALINE CAST, URINE 11 /lpf (RARE); KETONE, URINE 150 mg/dL (NEG); NITRITE,URINE NEG (NEG); PH, URINE 5.5 (5.0-8.5); URINE COLOR YELLOW (YELLW/STRAW); URINE LEUKOCYTE ESTERASE NEG (NEG)
[2017-07-15 20:02] LABS: ALKALINE PHOSPHATASE 159 U/L (45-117); TOTAL BILIRUBIN ADULT 0.7 MG/DL (0.2-1.0); TOTAL PROTEIN 10.2 GM/DL (6.4-8.2)
[2017-07-15 20:05] LABS: ALBUMIN 4.6 GM/DL (3.4-5.0); AST (GOT) 21 U/L (15-37); BICARBONATE 13.9 MEQ/L (21.0-32.0); BLOOD UREA NITROGEN 42 MG/DL (7-18); CALCIUM 10.5 MG/DL (8.5-10.1); CHLORIDE 102 MEQ/L (98-107); CREATININE 2.41 MG/DL (0.60-1.30); GLOMERULAR FILTRATION RATE 40 ML/MIN (>89); GLUCOSE,RANDOM 165 MG/DL (74-106); MAGNESIUM 2.8 MG/DL (1.5-2.5); SODIUM (NA) 139 MEQ/L (136-145)
[2017-07-15 21:20] VITALS: BP 158/88; PULSE 104; RESP 17; O2SAT 100
[2017-07-15] MEDS ORDERED: INSULIN HUMAN REGULAR 1,000 UNITS/10 ML VIAL IV PUSH ONE (21:30)
[2017-07-15 22:00] VITALS: BP 158/67; PULSE 100; RESP 16; O2SAT 100
[2017-07-15 22:43] LABS: CALCIUM 8.2 MG/DL (8.5-10.1); CREATININE 2.2 MG/DL (0.60-1.30)
[2017-07-16 00:02] VITALS: BP 168/97; PULSE 102; RESP 15; O2SAT 100
[2017-07-16] MEDS ORDERED: SODIUM CHLOR 0.9% 1000 ML INJ 1,000 ML IV ONE (01:15)
[2017-07-16 05:18] VITALS: BP_SYST 161; BP_SYST 166; BP_SYST 172; BP_DIAS 100; BP_DIAS 93; BP_DIAS 99
[2017-07-16 05:46] LABS: BICARBONATE 20.1 MEQ/L (21.0-32.0); CALCIUM 8.2 MG/DL (8.5-10.1); CREATININE 2.23 MG/DL (0.60-1.30)
[2017-07-16] MEDS ORDERED: LISINOPRIL 20 MG TAB PO ONE (06:00)
--- NOTE | 2017-07-16 06:00 | PD ---
Physical Exam Date Seen by Provider: Jul 15, 2017 Time Seen by Provider: 19:30 Narrative She is signed out to me at shift change 7 PM patient is waiting for his acid state chemistry is sent and a VBG is sent his pH is 7.49 not acidotic. His chemistry does have an iron gap of 23 and he is given 3 L of fluid before I initiate anything in terms of being in diabetic ketoacidosis doses based on the fact that his pH is 7.49 it is not acidotic after 3 L his anion gap is gone I had given him to units of insulin IV patient feels much better he tolerates p.o. but creatinine remains elevated need admission Data Data Last Documented VS Vital Signs Date Time Temp Pulse Resp B/P (MAP) Pulse Ox O2 Delivery O2 Flow Rate FiO2 07/16/17 05:18 91 161/99 (119) 95 166/93 (117) 100 172/100 (124) 07/16/17 00:02 15 100 Room Air 07/15/17 18:32 98.6 Orders Orders Electrocardiogram (07/15/17 18:28) Complete Blood Count With Diff (07/15/17 18:28) Comprehensive Metabolic Panel (07/15/17 18:28) Magnesium (Mg) (07/15/17 18:28) Phosphorus (Po4) (07/15/17 18:28) Beta Hydroxybutyrate (Acetone) (07/15/17 18:28) Urinalysis - C+S If Indicated (07/15/17 18:28) Blood Gas Venous (Vbg) (07/15/17 18:28) Blood Glucose (07/15/17 18:28) Blood Glucose (07/15/17 19:) Ecg Monitoring (07/15/17 18:28) Iv Access Insert/Monitor (07/15/17 18:28) Oximetry (07/15/17 18:28) NPO (07/15/17 18:28) Sodium Chlor 0.9% 1000 Ml Inj (Ns 1000 M (07/15/17 18:28) Sodium Chlor 0.9% 1000 Ml Inj (Ns 1000 M (07/15/17 18:58) Sodium Chloride 0.9% Flush (Ns Flush) (07/15/17 18:30) Prochlorperazine Inj (Compazine Inj) (07/15/17 19:00) Diphenhydramine Inj (Benadryl Inj) (07/15/17 19:00) Sodium Chlor 0.9% 1000 Ml Inj (Ns 1000 M (07/15/17 20:30) Basic Metabolic Panel (Bmp) (07/15/17 21:16) Insulin Human Regular Inj (Novolin R Inj (07/15/17 21:30) Sodium Chlor 0.9% 1000 Ml Inj (Ns 1000 M (07/16/17 01:15) Basic Metabolic Panel (Bmp) (07/16/17 04:55) Lisinopril (Prinivil) (07/16/17 06:00) Admit Order (Ed Use Only) (07/16/17 07:16) Labs Laboratory Tests Test 07/15/17 18:57 07/15/17 19:30 07/15/17 19:34 07/15/17 22:00 White Blood Count 14.6 TH/MM3 Red Blood Count 4.66 MIL/MM3 Hemoglobin 13.9 GM/DL Hematocrit 40.9 % Mean Corpuscular Volume 87.8 FL Mean Corpuscular Hemoglobin 29.8 PG Mean Corpuscular Hemoglobin Concent 34.0 % Red Cell Distribution Width 12.4 % Platelet Count 308 TH/MM3 Mean Platelet Volume 10.4 FL Neutrophils (%) (Auto) 76.5 % Lymphocytes (%) (Auto) 18.0 % Monocytes (%) (Auto) 4.9 % Eosinophils (%) (Auto) 0.0 % Basophils (%) (Auto) 0.6 % Neutrophils # (Auto) 11.2 TH/MM3 Lymphocytes # (Auto) 2.6 TH/MM3 Monocytes # (Auto) 0.7 TH/MM3 Eosinophils # (Auto) 0.0 TH/MM3 Basophils # (Auto) 0.1 TH/MM3 CBC Comment DIFF FINAL Differential Comment Blood Urea Nitrogen 42 MG/DL 39 MG/DL Creatinine 2.41 MG/DL 2.20 MG/DL Random Glucose 165 MG/DL 179 MG/DL Total Protein 10.2 GM/DL Albumin 4.6 GM/DL Calcium Level 10.5 MG/DL 8.2 MG/DL Phosphorus Level 1.4 MG/DL Magnesium Level 2.8 MG/DL Alkaline Phosphatase 159 U/L Aspartate Amino Transf (AST/SGOT) 21 U/L Alanine Aminotransferase (ALT/SGPT) 16 U/L Total Bilirubin 0.7 MG/DL Sodium Level 139 MEQ/L 145 MEQ/L Potassium Level 3.9 MEQ/L 3.5 MEQ/L Chloride Level 102 MEQ/L 111 MEQ/L Carbon Dioxide Level 13.9 MEQ/L 18.0 MEQ/L Anion Gap 23 MEQ/L 16 MEQ/L Estimat Glomerular Filtration Rate 40 ML/MIN 44 ML/MIN B-Hydroxybutyrate 7.54 MMOL/L Blood Gas Puncture Site Blood Gas Patient Temperature 98.6 Venous Blood pH 7.49 Venous Blood Partial Pressure CO2 18 mmHg Venous Blood Partial Pressure O2 39 mmHg Venous Blood HCO3 14 mmol/L Venous Blood Oxygen Saturation 78 % Venous Blood Oxygen Content 15.7 Vol % Venous Blood Base Excess -8.9 mmol/L Oxygen Delivery Device ROOM AIR Blood Gas Inspired Oxygen 21 % Urine Color YELLOW Urine Turbidity CLEAR Urine pH 5.5 Urine Specific [place] 1.017 Urine Protein 300 mg/dL Urine Glucose (UA) 70 mg/dL Urine Ketones 150 mg/dL Urine Occult Blood MOD Urine Nitrite NEG Urine Bilirubin NEG Urine Urobilinogen 2.0 MG/DL Urine Leukocyte Esterase NEG Urine RBC 12 /hpf Urine WBC 4 /hpf Urine Hyaline Casts 11 /lpf Urine Granular Casts 61 /lpf Microscopic Urinalysis Comment CULT NOT INDICATED Test 07/16/17 04:58 Blood Urea Nitrogen 36 MG/DL Creatinine 2.23 MG/DL Random Glucose 227 MG/DL Calcium Level 8.2 MG/DL Sodium Level 146 MEQ/L Potassium Level 4.2 MEQ/L Chloride Level 114 MEQ/L Carbon Dioxide Level 20.1 MEQ/L Anion Gap 12 MEQ/L Estimat Glomerular Filtration Rate 44 ML/MIN [facility] Supervised Visit with CRISS: No Differential Diagnosis DKA vs non ketotic severe dehydration due to vomit , acute renal failure due to severe pre renal dehydration from vomit diarrhea , other Narrative Course pt given 4 liters and anion gap corrected without Insulin Drip ABG shows pH 7.49 not acidotic and all labs corrected with fluid except creatinine remained high 2.23. after 4 liters and 2 redraws for chem still creatinine up much above his normal baseline --> will admit for further renal eval Diagnosis Primary Impression: Hyperglycemia Additional Impressions: Gastroenteritis Acute renal failure Qualified Codes: N17.9 - Acute kidney failure, unspecified Admitting Information Admitting Physician Requests: Admit Patient Instructions: General Instructions Departure Forms: Tests/Procedures Scripts Amlodipine (Norvasc) 10 Mg Tab 10 MG PO DAILY for HIGH BLOOD PRESSURE, #30 TAB 1 Refill Prov: Tsering Ness MD 07/18/17 Insulin Glargine Inj (Lantus Inj) 1,000 Unit/10 Ml Vial 30 UNITS SQ DAILY for Blood Sugar Management for 30 Days, VIAL 0 Refills Prov: Tsering Ness MD 07/18/17 Lisinopril (Lisinopril) 20 Mg Tab 20 MG PO DAILY for HIGH BLOOD PRESSURE, #30 TAB 1 Refill Prov: Tsering Ness MD 07/18/17 Condition: Stable Constantino Phillip MD Jul 16, 2017 06:00
[2017-07-16] MEDS ORDERED: hydrALAZINE HCL 10 MG TAB PO PRN (08:15)
[2017-07-16] MEDS ORDERED: DEXTROSE 50% IN WATER 50 ML VIAL(D50) IV PUSH PRN (08:15)
[2017-07-16] MEDS ORDERED: ONDANSETRON HCL 4 MG/2 ML VIAL IVP PRN (08:15)
[2017-07-16] MEDS ORDERED: LACTULOSE SYRUP 20 GM/30 ML CUP PO PRN (08:15)
[2017-07-16] MEDS ORDERED: GLUCAGON 1 MG/ML VIAL OTHER PRN (08:15)
[2017-07-16] MEDS ORDERED: SODIUM CHLORIDE 0.9% FLUSH 10 ML FLUSH IV FLUSH PRN (08:15)
[2017-07-16] MEDS ORDERED: SENNOSIDES 8.6 MG TAB PO PRN (08:15)
[2017-07-16] MEDS ORDERED: MAGNESIUM HYDROXIDE SUSP 30 ML CUP PO PRN (08:15)
[2017-07-16] MEDS ORDERED: NALOXONE HCL 0.4 MG/ML AMP IV PUSH PRN (08:15)
[2017-07-16] MEDS ORDERED: BISACODYL 10 MG SUPP RECTAL PRN (08:15)
[2017-07-16] MEDS: SODIUM CHLOR 0.9% 1000 ML INJ 1,000 ML IV SCH ×2 (08:28→18:28)
[2017-07-16 09:00] VITALS: BP 130/77; PULSE 97; RESP 18; O2SAT 98
[2017-07-16] MEDS ORDERED: INSULIN DETEMIR 100 UNITS/ML VIAL SQ SCH (09:00)
[2017-07-16] MEDS: SODIUM CHLORIDE 0.9% FLUSH 10 ML FLUSH IV FLUSH SCH ×2 (09:05→21:00)
[2017-07-16] MEDS: DOCUSATE SODIUM 50 MG/SENNA 8.6 MG TAB PO SCH ×2 (09:06→21:00)
[2017-07-16] MEDS ORDERED: HUMALOG SQ (10:58)
[2017-07-16] MEDS ORDERED: LANTUS2P SQ (10:58)
--- NOTE | 2017-07-16 11:08 | HHI.HP ---
HPI Service [facility] Primary Care Physician Non-Staff Admission Diagnosis acute renal failure Diagnoses: Travel History International Travel<30 Days: No Contact w/Intl Traveler <30 Da: No Traveled to Known Affected Are: No History of Present Illness Patient is a 26-year-old -[place] male past medical history of diabetes and history of ketoacidosis presented to the emergency room with nausea vomiting not feeling well. Upon admission to the ED he was found to have a an anion gap of 23 and blood sugars of 165. Pt states he had multiple episodes of emesis which prompted him to come to the emergency room. He denied any abdominal pain, burning with urination or increased urinary frequency, he denies any upper respiratory symptoms such as cough, runny nose or shortness of breath. Patient states he has been compliant with his medications. He takes long-acting but does not tell me how much and he also states he takes insulin with his meals plus a sliding scale. RN at the time of the interview tells me that mom called and patient is supposed to be on Lantus 60 units daily and 12 units of Humalog with meals then he covers himself with a sliding scale. I did review patient's previous admission and he was instructed to continue lantus 30 units daily and 10 units of NovoLog with meals. Patient states he has been compliant with all his medications. Denies any sick contacts. He states he has a history of loose stools which is normal for him. At last admission there were concerns of patient's labile blood sugars as well. When asked patient he counts carbs he says yes. Patient states that he does not remember if he went over the dose of his medications with the nurse upon arrival to the ER. Review of Systems Except as stated in HPI: all other systems reviewed are Neg Past Family Social History Past Medical History Diabetes/DKA Past Surgical History None Reported Medications Reported Meds & Active Scripts Active Lisinopril 20 Mg Tab 20 Mg PO DAILY Reported Humalog Inj (Insulin Human Lispro) 1,000 Unit/10 Ml Vial 12 Units SQ ACHS Max dose at bedtime:( )units; sugars < 70,(0)units; sugars 150-199,(2)units; sugars 200-249,(4)units; sugars 250-299,(7)units; sugars 300-349,(10)units; sugars more than 349,(12)units. Lantus Inj (Insulin Glargine) 1,000 Unit/10 Ml Vial 60 Units SQ DAILY Allergies: Coded Allergies: No Known Allergies (Unverified Adverse Reaction, Unknown, 05/10/17) Family History Patient denies any medical problems with parents Social History Denies smoking history, denies drinking alcohol or using illegal drug use. Physical Exam Vital Signs Vital Signs Date Time Temp Pulse Resp B/P (MAP) Pulse Ox O2 Delivery O2 Flow Rate FiO2 07/16/17 09:00 97 18 130/77 (94) 98 Room Air 07/16/17 05:18 91 161/99 (119) 95 166/93 (117) 100 172/100 (124) 07/16/17 00:02 102 15 168/97 (120) 100 Room Air 07/15/17 22:00 100 16 158/67 (97) 100 Room Air 07/15/17 21:20 104 17 158/88 (111) 100 Room Air 07/15/17 18:32 98.6 102 20 176/100 (125) 100 Room Air 07/15/17 18:32 99 18 100 Room Air 07/15/17 18:32 103 18 100 Room Air 07/15/17 18:26 98.6 99 18 176/100 (125) 100 Physical Exam GENERAL: AA male, laying in bed, appears comfortable SKIN: No rashes, ecchymoses or lesions. Cool and dry. HEAD: Atraumatic. Normocephalic. EYES: Extraocular motions intact. ENT: Nose without drainage. Airway patent. NECK: Trachea midline. CARDIOVASCULAR: Regular rate and rhythm without murmurs RESPIRATORY: Clear to auscultation. Breath sounds equal bilaterally. No wheezes GASTROINTESTINAL: Abdomen soft, non-tender, nondistended. No guarding. MUSCULOSKELETAL: Extremities without edema. NEUROLOGICAL: Awake and alert. Normal speech. Laboratory Laboratory Tests Test 07/15/17 18:57 07/15/17 19:30 07/15/17 19:34 07/15/17 22:00 White Blood Count 14.6 Red Blood Count 4.66 Hemoglobin 13.9 Hematocrit 40.9 Mean Corpuscular Volume 87.8 Mean Corpuscular Hemoglobin 29.8 Mean Corpuscular Hemoglobin Concent 34.0 Red Cell Distribution Width 12.4 Platelet Count 308 Mean Platelet Volume 10.4 Neutrophils (%) (Auto) 76.5 Lymphocytes (%) (Auto) 18.0 Monocytes (%) (Auto) 4.9 Eosinophils (%) (Auto) 0.0 Basophils (%) (Auto) 0.6 Neutrophils # (Auto) 11.2 Lymphocytes # (Auto) 2.6 Monocytes # (Auto) 0.7 Eosinophils # (Auto) 0.0 Basophils # (Auto) 0.1 CBC Comment DIFF FINAL Differential Comment Blood Urea Nitrogen 42 39 Creatinine 2.41 2.20 Random Glucose 165 179 Total Protein 10.2 Albumin 4.6 Calcium Level 10.5 8.2 Phosphorus Level 1.4 Magnesium Level 2.8 Alkaline Phosphatase 159 Aspartate Amino Transf (AST/SGOT) 21 Alanine Aminotransferase (ALT/SGPT) 16 Total Bilirubin 0.7 Sodium Level 139 145 Potassium Level 3.9 3.5 Chloride Level 102 111 Carbon Dioxide Level 13.9 18.0 Anion Gap 23 16 Estimat Glomerular Filtration Rate 40 44 B-Hydroxybutyrate 7.54 Blood Gas Puncture Site Blood Gas Patient Temperature 98.6 Venous Blood pH 7.49 Venous Blood Partial Pressure CO2 18 Venous Blood Partial Pressure O2 39 Venous Blood HCO3 14 Venous Blood Oxygen Saturation 78 Venous Blood Oxygen Content 15.7 Venous Blood Base Excess -8.9 Oxygen Delivery Device ROOM AIR Blood Gas Inspired Oxygen 21 Urine Color YELLOW Urine Turbidity CLEAR Urine pH 5.5 Urine Specific [place] 1.017 Urine Protein 300 Urine Glucose (UA) 70 Urine Ketones 150 Urine Occult Blood MOD Urine Nitrite NEG Urine Bilirubin NEG Urine Urobilinogen 2.0 Urine Leukocyte Esterase NEG Urine RBC 12 Urine WBC 4 Urine Hyaline Casts 11 Urine Granular Casts 61 Microscopic Urinalysis Comment CULT NOT INDICATED Test 07/16/17 04:58 Blood Urea Nitrogen 36 Creatinine 2.23 Random Glucose 227 Calcium Level 8.2 Sodium Level 146 Potassium Level 4.2 Chloride Level 114 Carbon Dioxide Level 20.1 Anion Gap 12 Estimat Glomerular Filtration Rate 44 Result Diagram: 07/15/17 1857 07/16/17 0458 Caprini VTE Risk Assessment Caprini VTE Risk Assessment: No/Low Risk (score <= 1) Caprini Risk Assessment Model Point Value = 1 Point Value = 2 Point Value = 3 Point Value = 5 Age 41-60 Minor surgery BMI > 25 kg/m2 Swollen legs Varicose veins or History of unexplained or recurrent spontaneous Oral contraceptives or hormone replacement Sepsis (< 1 month) Serious lung disease, including pneumonia (< 1 month) Abnormal pulmonary function Acute myocardial infarction Congestive heart failure (< 1 month) History of inflammatory bowel disease Medical patient at bed rest Age 61-74 Arthroscopic surgery Major open surgery (> 45 min) Laparoscopic surgery (> 45 min) Malignancy Confined to bed (> 72 hours) Immobilizing plaster cast Central venous access Age >= 75 History of VTE Family history of VTE Factor V Leiden Prothrombin [id number] Lupus anticoagulant Anticardiolipin antibodies Elevated serum homocysteine Heparin-induced thrombocytopenia Other congenital or acquired thrombophilia Stroke (< 1 month) Elective arthroplasty Hip, pelvis, or leg fracture Acute spinal cord injury (< 1 month) Prophylaxis Regimen Total Risk Factor Score Risk Level Prophylaxis Regimen 0-1 Low Early ambulation 2 Moderate Order ONE of the following: *Sequential Compression Device (SCD) *Heparin 5000 units SQ BID 3-4 Higher Order ONE of the following medications: *Heparin 5000 units SQ TID *Enoxaparin/Lovenox 40 mg SQ daily (WT < 150 kg, CrCl > 30 mL/min) *Enoxaparin/Lovenox 30 mg SQ daily (WT < 150 kg, CrCl > 10-29 mL/min) *Enoxaparin/Lovenox 30 mg SQ BID (WT < 150 kg, CrCl > 30 mL/min) AND/OR *Sequential Compression Device (SCD) 5 or more Highest Order ONE of the following medications: *Heparin 5000 units SQ TID (Preferred with Epidurals) *Enoxaparin/Lovenox 40 mg SQ daily (WT < 150 kg, CrCl > 30 mL/min) *Enoxaparin/Lovenox 30 mg SQ daily (WT < 150 kg, CrCl > 10-29 mL/min) *Enoxaparin/Lovenox 30 mg SQ BID (WT < 150 kg, CrCl > 30 mL/min) AND *Sequential Compression Device (SCD) Assessment and Plan Assessment and Plan Uncontrolled diabetes: Patient most likely went into DKA when he first came in as his anion gap was 23 secondary to severe dehydration from nausea vomiting. Possibly from gastroenteritis which seems to have now resolved. In the ED, patient received normal saline boluses with insulin IV. Anion gap closed and went from 23 to12. When I evaluated the patient, patient's blood sugars were 226 on Accu-Chek. Patient told me he was feeling a lot better and no longer had nausea or vomiting. RN notified me that patient's home dose should be Lantus 60 units daily with 12 units of Humalog with meals per mother who called her. From previous records, patient has very labile blood sugars. This morning patient got a 30 unit dose of Levemir and we will continue to adjust/ increase Levemir daily. I have put him on a diabetic diet, 1800 ADA. He is also on a medium insulin sliding scale. Monitor blood sugars closely. I will consult dietitian to please review with him carb counting as I suspect this plays a big role in patient's labile blood sugars. 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 We will continue IV hydration with normal saline at 125 mL's per hour. As mentioned above patient did receive boluses in the ED. I have encouraged him to hydrate himself by mouth. Patient voices his understanding. Monitor creatinine closely. Mild leukocytosis: Source unknown at this time. Patient is asymptomatic. Could be from gastroenteritis causing the nausea/ vomiting which has now resolved. Continue Zofran as needed. Repeat CBC in the morning DVT prophylaxis: SCD. Encourage ambulation Code Status full Discussed Condition With patient, ER physician and RN Anette Garber MD Jul 16, 2017 11:08
[2017-07-16 12:00] VITALS: BP 136/72; PULSE 91; RESP 16; O2SAT 98
[2017-07-16] MEDS ORDERED: INSULIN ASPART SUPPLEMENTAL SCALE SQ SCH (12:00)
[2017-07-16] MEDS: INSULIN ASPART SUPPLEMENTAL SCALE SQ SCH ×3 (12:13→21:00)
[2017-07-16 18:00] VITALS: BP 151/87; PULSE 89; RESP 17; TEMP 98.1; O2SAT 100
[2017-07-16 18:30] LABS: BICARBONATE 26.9 MEQ/L (21.0-32.0); CALCIUM 8.7 MG/DL (8.5-10.1); CREATININE 1.56 MG/DL (0.60-1.30)
[2017-07-16] MEDS ORDERED: BENZOCAINE-MENTHOL (SUGAR FREE) 15 MG-3.6 MG LOZENGE BUCCAL PRN (19:00)
[2017-07-16 20:00] VITALS: BP 153/92; PULSE 91; RESP 17; TEMP 97.3; O2SAT 100
[2017-07-17] VITALS: BP 135/90; PULSE 91; RESP 16; TEMP 98.1; O2SAT 100
[2017-07-17] MEDS: SODIUM CHLOR 0.9% 1000 ML INJ 1,000 ML IV SCH ×2 (00:15→08:34)
[2017-07-17 04:00] VITALS: BP 152/90; PULSE 84; RESP 16; TEMP 97.9; O2SAT 100
[2017-07-17 08:00] VITALS: BP 155/92; PULSE 82; RESP 16; TEMP 98; O2SAT 100
[2017-07-17] MEDS: INSULIN ASPART SUPPLEMENTAL SCALE SQ SCH ×4 (08:00→20:17)
[2017-07-17] MEDS: SODIUM CHLORIDE 0.9% FLUSH 10 ML FLUSH IV FLUSH SCH ×2 (08:34→21:24)
[2017-07-17] MEDS: INSULIN DETEMIR 100 UNITS/ML VIAL SQ SCH (08:35)
[2017-07-17] MEDS: DOCUSATE SODIUM 50 MG/SENNA 8.6 MG TAB PO SCH ×2 (08:35→21:21)
[2017-07-17] MEDS ORDERED: INSULIN DETEMIR 100 UNITS/ML VIAL SQ SCH (09:00)
--- NOTE | 2017-07-17 09:12 | EKG ---
Date Performed: 07/15/2017 Time Performed: 19:03:33 PTAGE: 26 years EKG: Sinus rhythm POSSIBLE LEFT ATRIAL ENLARGEMENT BORDERLINE ECG NO PREVIOUS TRACING DOCTOR: Verito Adkins Interpretating Date/Time 07/17/2017 09:09:27
--- NOTE | 2017-07-17 10:46 | HHI.PR ---
Subjective Remarks Pt seen and examined. VS reviewed, BPs elevated consistently with systolic in 150s. Pt reports he is feeling better. Nausea and vomiting completely resolved. He is tolerating PO. No abdominal pain. Admits that he eats significantly more at home when inquired about his hypoglycemic accuchecks. Bedside accucheck 41 this AM. Up to 115 after eating breakfast. 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 He states he does a SS based on carb counting and is also careful about his carb intake. Endorses compliance with insulin but admits to running out of his Lisinopril. Objective Vital Signs Date Time Temp Pulse Resp B/P (MAP) Pulse Ox O2 Delivery O2 Flow Rate FiO2 07/17/17 08:00 98.0 82 16 155/92 (113) 100 07/17/17 04:00 97.9 84 16 152/90 (110) 100 07/17/17 00:00 98.1 91 16 135/90 (105) 100 07/16/17 20:00 97.3 91 17 153/92 (112) 100 07/16/17 18:00 98.1 89 17 151/87 (108) 100 07/16/17 12:00 91 16 136/72 (93) 98 Room Air I/O 07/16/17 07/16/17 07/16/17 07/17/17 07/17/17 07/17/17 07:00 15:00 23:00 07:00 15:00 23:00 Intake Total 1000 ml 240 ml 1640 ml Output Total 700 ml Balance 1000 ml 240 ml 940 ml Intake Oral 240 ml 1640 ml IV Total 1000 ml Output Urine Total 700 ml Result Diagram: 07/15/17 5927 07/16/17 4814 Objective Remarks GENERAL: WN, WD AA male resting in bed in NAD. SKIN: Warm and dry. HEENT: AT/NC. Pupils equal and round. MMM. NECK: Supple no tender LAD or JVD. HEART: RRR no m/r/g. LUNGS: CTAB without wheezes or crackles. ABDOMEN: +BS, soft, NT, ND. EXTREMITIES: No LE edema. 2+ pedal pulses. NEURO: Awake and alert. Nonfocal. PSYCH: Appropriate mood and affect. A/P Assessment and Plan 26 year old AA male with DM presented to the ER on 4/19 with nausea and vomiting found to be in DKA. 1. 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 Acute on chronic injury - Creatinine on admission was 2.41 down to 1.56 yesterday - D/C IVF and encourage PO intake - Resume home Lisinopril - Continue to monitor renal function 3. HTN - BPs elevated - Continue amlodipine - Resume home Lisinopril 4. Hematuria on U/A - 12 RBCs noted - Repeat U/A. If persists may need work-up DVT prophylaxis: SCDs. Encourage ambulation Discharge Planning Anticipate D/C tomorrow if hypoglycemic episodes resolve and renal function stabilizes Tsering Ness MD Jul 17, 2017 10:46
[2017-07-17 12:00] VITALS: BP 149/96; PULSE 76; RESP 16; TEMP 97.7; O2SAT 100
[2017-07-17] MEDS: LISINOPRIL 20 MG TAB PO SCH (12:19)
[2017-07-17 12:56] LABS: AUTOMATED NEUTROPHIL # 4.7 TH/MM3 (1.8-7.7); BASOPHIL % 0.5 % (0.0-2.0); EOSINOPHIL # 0.1 TH/MM3 (0-0.4); EOSINOPHIL % 0.7 % (0.0-4.0); HEMATOCRIT 32.6 % (39.0-51.0); HEMOGLOBIN 10.9 GM/DL (13.0-17.0); LYMPH % 40.6 % (9.0-44.0); LYMPHOCYTE # 3.7 TH/MM3 (1.0-4.8); MEAN CELL VOLUME 90.7 FL (80.0-100.0); MEAN CORPUSCULAR HEMOGLOBIN 30.2 PG (27.0-34.0); MEAN CORPUSCULAR HGB CONC 33.3 % (32.0-36.0); MEAN PLATELET VOLUME 9.8 FL (7.0-11.0); MONO % 7.5 % (0.0-8.0); MONOCYTE # 0.7 TH/MM3 (0-0.9); NEUT % 50.7 % (16.0-70.0); PLATELET COUNT 205 TH/MM3 (150-450); RED CELL DISTRIBUTION WIDTH 12.9 % (11.6-17.2); WHITE BLOOD COUNT 9.2 TH/MM3 (4.0-11.0)
[2017-07-17 13:28] LABS: BICARBONATE 27.3 MEQ/L (21.0-32.0); CALCIUM 8.4 MG/DL (8.5-10.1); CREATININE 1.23 MG/DL (0.60-1.30)
[2017-07-17 14:20] LABS: BILIRUBIN, URINE NEG (NEG); BLOOD, URINE SMALL (NEG); GLUCOSE,URINE TRACE mg/dL (NEG); KETONE, URINE 10 mg/dL (NEG); MUCUS URINE FEW /lpf (OCC); NITRITE,URINE NEG (NEG); PH, URINE 5.5 (5.0-8.5); URINE COLOR LIGHT-YELLOW (YELLW/STRAW); URINE LEUKOCYTE ESTERASE NEG (NEG)
[2017-07-17 16:00] VITALS: BP 136/83; PULSE 90; RESP 16; TEMP 98; O2SAT 99
[2017-07-17 20:00] VITALS: BP 133/89; PULSE 92; RESP 18; TEMP 98.7; O2SAT 100
[2017-07-18] VITALS: BP 158/98; PULSE 91; RESP 18; TEMP 98.1; O2SAT 100
[2017-07-18 04:00] VITALS: BP 148/86; PULSE 93; RESP 18; TEMP 97.9; O2SAT 100
[2017-07-18 07:18] LABS: BASOPHIL # 0.1 TH/MM3 (0-0.2); BASOPHIL % 0.8 % (0.0-2.0); EOSINOPHIL # 0.1 TH/MM3 (0-0.4); EOSINOPHIL % 1.2 % (0.0-4.0); HEMATOCRIT 31.6 % (39.0-51.0); HEMOGLOBIN 10.7 GM/DL (13.0-17.0); LYMPH % 55.1 % (9.0-44.0); LYMPHOCYTE # 4.5 TH/MM3 (1.0-4.8); MEAN CELL VOLUME 89.6 FL (80.0-100.0); MEAN CORPUSCULAR HEMOGLOBIN 30.4 PG (27.0-34.0); MEAN CORPUSCULAR HGB CONC 33.9 % (32.0-36.0); MEAN PLATELET VOLUME 9.8 FL (7.0-11.0); MONOCYTE # 0.5 TH/MM3 (0-0.9); NEUT % 36.9 % (16.0-70.0); PLATELET COUNT 194 TH/MM3 (150-450); RED BLOOD COUNT 3.53 MIL/MM3 (4.50-5.90); RED CELL DISTRIBUTION WIDTH 12.4 % (11.6-17.2); WHITE BLOOD COUNT 8.1 TH/MM3 (4.0-11.0)
[2017-07-18 07:39] LABS: BICARBONATE 25.6 MEQ/L (21.0-32.0); CALCIUM 8.4 MG/DL (8.5-10.1); CREATININE 1.35 MG/DL (0.60-1.30)
[2017-07-18 08:00] VITALS: BP 139/102; PULSE 76; RESP 16; TEMP 98.2; O2SAT 100
--- NOTE | 2017-07-18 09:09 | HHI.PR ---
Subjective Remarks Pt seen and examined. VS reviewed. Pt feels well and states he is ready to go home. Has all of his insulin, supplies, and glucometer needs at home. Needs refill for Lisinopril. 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 Denies CP, SOB, abdominal pain, N/V. Tolerating PO. He states he normally takes 60 units Lantus at home but understands to start at 30 since that is what he was getting in the hospital since he was becoming severely hypoglycemic with sugars 30-40s at the 40-60 unit dose. Discussed increasing gradually to his normal dose based on his fasting sugars and as he eats his typical diet. Objective Vital Signs Date Time Temp Pulse Resp B/P (MAP) Pulse Ox O2 Delivery O2 Flow Rate FiO2 07/18/17 04:00 97.9 93 18 148/86 (106) 100 07/18/17 00:00 98.1 91 18 158/98 (118) 100 07/17/17 20:00 98.7 92 18 133/89 (104) 100 07/17/17 16:00 98.0 90 16 136/83 (100) 99 07/17/17 12:00 97.7 76 16 149/96 (113) 100 I/O 07/17/17 07/17/17 07/17/17 07/18/17 07/18/17 07/18/17 07:00 15:00 23:00 07:00 15:00 23:00 Intake Total 1640 ml 840 ml 340 ml Output Total 700 ml 900 ml Balance 940 ml -900 ml 840 ml 340 ml Intake Oral 1640 ml 840 ml 340 ml Output Urine Total 700 ml 900 ml # Voids 3 2 # Bowel Movements 0 Result Diagram: 07/18/17 0650 07/18/17 0650 Objective Remarks GENERAL: WN, WD AA male resting in bed in NAD. SKIN: Warm and dry. HEENT: AT/NC. Pupils equal and round. MMM. NECK: Supple no tender LAD or JVD. HEART: RRR no m/r/g. LUNGS: CTAB without wheezes or crackles. ABDOMEN: +BS, soft, NT, ND. EXTREMITIES: No LE edema. 2+ pedal pulses. NEURO: Awake and alert. Nonfocal. PSYCH: Appropriate mood and affect. A/P Assessment and Plan 26 year old AA male with DM presented to the ER on 07/15 with nausea and vomiting found to be in mild DKA. 1. DKA (resolved) - Pt presented with a slightly elevated blood glucose but elevated anion gap of 23, decreased CO2, and increased beta hydroxybutyrate - Possibly secondary to gastroenteritis which seems to have now resolved - Received NS bolus and IV insulin in the ED and anion gap quickly closed - Home dose of insulin: Lantus 60 units QD and Humalog 12 units QAC - Reduce Levemir to 30 units given hypoglycemia - Continue additional medium SSI coverage - Diabetic diet - Assisted Living Executive Director consulted - Pt has corporate meeting planner in [place] (he has been here since September of last year and plans on going back to August of this year) 2. Acute on chronic injury - Creatinine on admission was 2.41 down to 1.35 yesterday - Encourage PO intake - Resume home Lisinopril - Continue to monitor renal function 3. HTN - BPs elevated - Continue amlodipine - Resume home Lisinopril 4. Hematuria on U/A - RBCs decreasing. F/U as outpatient DVT prophylaxis: SCDs. Encourage ambulation Discharge Planning D/C home today Tsering Ness MD Jul 18, 2017 09:09
[2017-07-18] MEDS: LISINOPRIL 20 MG TAB PO SCH (09:27)
[2017-07-18] MEDS: DOCUSATE SODIUM 50 MG/SENNA 8.6 MG TAB PO SCH (09:28)
[2017-07-18] MEDS: SODIUM CHLORIDE 0.9% FLUSH 10 ML FLUSH IV FLUSH SCH (09:28)
[2017-07-18] MEDS: INSULIN DETEMIR 100 UNITS/ML VIAL SQ SCH (09:29)
[2017-07-18] MEDS: INSULIN ASPART SUPPLEMENTAL SCALE SQ SCH ×2 (09:29→11:50)
[2017-07-18] MEDS ORDERED: LISI-515 PO (10:41)
[2017-07-18] MEDS ORDERED: AMLO10 PO (10:41)
[2017-07-18] MEDS ORDERED: LANTUS2P SQ (10:41)
--- NOTE | 2017-07-18 10:43 | HHI.DCPOC ---
Discharge Care Plan Diagnosis: (1) DKA (diabetic ketoacidosis) Goals to Promote Your Health * To prevent worsening of your condition and complications * To maintain your health at the optimal level Directions to Meet Your Goals Take your medications as prescribed Follow your dietary instruction Follow activity as directed Keep your appointments as scheduled Take your immunizations and boosters as scheduled If your symptoms worsen call your PCP, if no PCP go to Urgent Care Center or Emergency Room Smoking is Dangerous to Your Health. Avoid second hand smoke Call the 24-hour hour crisis hotline for domestic abuse at INSTRUCTIONS FOR LANTUS: - Start at 30 units and if fasting sugar is greater than 120 then increase by 2 units each day Tsering Ness MD Jul 18, 2017 10:42
--- NOTE | 2017-07-18 10:54 | HHI.DS ---
Discharge Summary Admission Date Jul 16, 2017 at 07:18 Discharge Date: Jul 18, 2017 Admitting Diagnosis acute renal failure (1) DKA (diabetic ketoacidosis) ICD Code: E13.10 - DKA (diabetic ketoacidosis) Status: Acute (2) Hypertension ICD Code: I10 - Essential (primary) hypertension (3) DM (diabetes mellitus) ICD Code: E11.9 - DM (diabetes mellitus) Status: Acute Procedures None Brief History - From Admission Patient is a 26-year-old -[place] male past medical history of diabetes and history of ketoacidosis presented to the emergency room with nausea vomiting not feeling well. Upon admission to the ED he was found to have a an anion gap of 23 and blood sugars of 165. Pt states he had multiple episodes of emesis which prompted him to come to the emergency room. He denied any abdominal pain, burning with urination or increased urinary frequency, he denies any upper respiratory symptoms such as cough, runny nose or shortness of breath. Patient states he has been compliant with his medications. He takes long-acting but does not tell me how much and he also states he takes insulin with his meals plus a sliding scale. RN at the time of the interview tells me that mom called and patient is supposed to be on Lantus 60 units daily and 12 units of Humalog with meals then he covers himself with a sliding scale. I did review patient's previous admission and he was instructed to continue lantus 30 units daily and 10 units of NovoLog with meals. Patient states he has been compliant with all his medications. Denies any sick contacts. He states he has a history of loose stools which is normal for him. At last admission there were concerns of patient's labile blood sugars as well. When asked patient he counts carbs he says yes. Patient states that he does not remember if he went over the dose of his medications with the nurse upon arrival to the ER. CBC/BMP: 07/18/17 0650 07/18/17 0650 Significant Findings Laboratory Tests Test 07/15/17 18:57 07/15/17 19:30 07/15/17 19:34 07/15/17 22:00 White Blood Count 14.6 TH/MM3 (4.0-11.0) Neutrophils (%) (Auto) 76.5 % (16.0-70.0) Neutrophils # (Auto) 11.2 TH/MM3 (1.8-7.7) Blood Urea Nitrogen 42 MG/DL (7-18) 39 MG/DL (7-18) Creatinine 2.41 MG/DL (0.60-1.30) 2.20 MG/DL (0.60-1.30) Random Glucose 165 MG/DL (74-106) 179 MG/DL (74-106) Total Protein 10.2 GM/DL (6.4-8.2) Calcium Level 10.5 MG/DL (8.5-10.1) 8.2 MG/DL (8.5-10.1) Phosphorus Level 1.4 MG/DL (2.5-4.9) Magnesium Level 2.8 MG/DL (1.5-2.5) Alkaline Phosphatase 159 U/L (45-117) Carbon Dioxide Level 13.9 MEQ/L (21.0-32.0) 18.0 MEQ/L (21.0-32.0) Anion Gap 23 MEQ/L (5-15) 16 MEQ/L (5-15) Estimat Glomerular Filtration Rate 40 ML/MIN (>89) 44 ML/MIN (>89) B-Hydroxybutyrate 7.54 MMOL/L (0.00-0.39) Venous Blood pH 7.49 (7.360-7.400) Venous Blood Partial Pressure CO2 18 mmHg (44-48) Venous Blood HCO3 14 mmol/L (22-26) Venous Blood Oxygen Saturation 78 % (70-76) Venous Blood Base Excess -8.9 mmol/L (-2-2) Urine Protein 300 mg/dL (NEG-TRACE) Urine Glucose (UA) 70 mg/dL (NEG) Urine Ketones 150 mg/dL (NEG) Urine Occult Blood MOD (NEG) Urine RBC 12 /hpf (0-3) Chloride Level 111 MEQ/L (98-107) Test 07/16/17 04:58 07/16/17 17:29 07/17/17 11:57 07/17/17 13:56 Blood Urea Nitrogen 36 MG/DL (7-18) 22 MG/DL (7-18) Creatinine 2.23 MG/DL (0.60-1.30) 1.56 MG/DL (0.60-1.30) Random Glucose 227 MG/DL (74-106) 44 MG/DL (74-106) 126 MG/DL (74-106) Calcium Level 8.2 MG/DL (8.5-10.1) 8.4 MG/DL (8.5-10.1) Sodium Level 146 MEQ/L (136-145) 146 MEQ/L (136-145) Chloride Level 114 MEQ/L (98-107) 112 MEQ/L (98-107) 108 MEQ/L (98-107) Carbon Dioxide Level 20.1 MEQ/L (21.0-32.0) Estimat Glomerular Filtration Rate 44 ML/MIN (>89) 66 ML/MIN (>89) 87 ML/MIN (>89) Red Blood Count 3.60 MIL/MM3 (4.50-5.90) Hemoglobin 10.9 GM/DL (13.0-17.0) Hematocrit 32.6 % (39.0-51.0) Potassium Level 3.3 MEQ/L (3.5-5.1) Urine Ketones 10 mg/dL (NEG) Urine Occult Blood SMALL (NEG) Urine RBC 4 /hpf (0-3) Urine Mucus FEW /lpf (OCC) Test 07/18/17 06:50 Red Blood Count 3.53 MIL/MM3 (4.50-5.90) Hemoglobin 10.7 GM/DL (13.0-17.0) Hematocrit 31.6 % (39.0-51.0) Lymphocytes (%) (Auto) 55.1 % (9.0-44.0) Creatinine 1.35 MG/DL (0.60-1.30) Random Glucose 221 MG/DL (74-106) Calcium Level 8.4 MG/DL (8.5-10.1) Potassium Level 3.4 MEQ/L (3.5-5.1) Estimat Glomerular Filtration Rate 78 ML/MIN (>89) Hospital Course 26 year old AA male with DM presented to the ER on 07/15 with nausea and vomiting found to be in mild DKA and MERON. He was treated with normal saline and IV insulin and his gap quickly closed. His home insulin was adjusted as he was getting profoundly hypoglycemic with Accuchecks 30-40s with serum confirmation. He improved clinically and was discharged in stable condition on 07/18. Pt Condition on Discharge: Good Discharge Disposition: Discharge Home Discharge Time: <= 30 minutes Discharge Instructions DIET: Follow Instructions for: Diabetic Diet Activities you can perform: Regular-No Restrictions Follow up Referrals: PCP Follow-up - 1 Week New Medications: Amlodipine (Norvasc) 10 Mg Tab 10 MG PO DAILY for HIGH BLOOD PRESSURE, #30 TAB 1 Refill Changed Medications: Insulin Glargine Inj (Lantus Inj) 1,000 Unit/10 Ml Vial 30 UNITS SQ DAILY for Blood Sugar Management for 30 Days, VIAL 0 Refills ( Changed from: 60 UNITS) Continued Medications: Insulin Lispro (Human) Inj (Humalog Inj) 1,000 Unit/10 Ml Vial 12 UNITS SQ ACHS for Blood Sugar Management, #1 VIAL 0 Refills Max dose at bedtime:( )units; sugars < 70,(0)units; sugars 150-199,(2)units; sugars 200-249,(4)units; sugars 250-299,(7)units; sugars 300-349,(10)units; sugars more than 349,(12)units. Lisinopril (Lisinopril) 20 Mg Tab 20 MG PO DAILY for HIGH BLOOD PRESSURE, #30 TAB 1 Refill (This prescription has been renewed) Tsering Ness MD Jul 18, 2017 10:54
[2017-07-18 12:00] VITALS: BP 137/96; PULSE 89; RESP 15; TEMP 98; O2SAT 100
== END 2017-07-18 14:20 | disposition home or self-care (01) | DRG 638 ==
LOC: NEPC 18:11 → NEDA 07-16 07:18 → NEDH 07-16 13:23 → N04A 07-16 17:49
PROVIDERS: ADMIT Family Medicine; ATTEND Family Medicine
DX: E10.10 Type 1 diabetes mellitus with ketoacidosis without coma (principal); N17.9 Acute kidney failure, unspecified; E87.0 Hyperosmolality and hypernatremia; E86.0 Dehydration; K52.9 Noninfective gastroenteritis and colitis, unspecified; I10 Essential (primary) hypertension; R31.9 Hematuria, unspecified; Z79.4 Long term (current) use of insulin
CPT/HCPCS: 80048; 80053; 81001; 82010; 82805; 82948; 83735; 84100; 85025; 93005; 96361; 96374; 96375; J0780; J1200; J1815; J7030